=== PATIENT | male | born 1945 | race Caucasian/White ===

== ENCOUNTER 2017-03-30 10:16 | Inpatient (IN) | payer MEDICARE, OTHER ==
[~2017-03-30] VITALS: Ht 182.9 cm; Wt 119.5 kg
[~2017-03-30 10:16] MED LIST: ACET-704 PO; ACYC800T PO; ALLO300T PO; ASPI81TA50 PO; CALC0.5C PO; CETI10CA PO; CHOL400T14 PO; EZET1TAB26 PO; FLUT30CR TP; INDO50CA PO; MAGN400T22 PO; NEBI10TA3 PO; NIAC500T PO; OLME40TA12 PO; OMEG300C PO; OMEP20CA9 PO; SPIR25TA3 PO; VIT500LI PO
[2017-03-30 10:44] LABS: BASO # 0.1 x10^3/uL (0.0-0.2); BASO % 1 % (0-3); EOS # 0.3 x10^3/uL (0.0-0.7); EOS % 3 % (0-3); HEMATOCRIT 43.1 % (39.0-53.0); HEMOGLOBIN 14.5 g/dL (13.0-17.5); LYMPH # 4.4 x10^3/uL (1.0-4.8); LYMPH % 45 % (24-48); MEAN CORPUSCULAR HEMOGLOBIN 33 pg (25-35); MEAN CORPUSCULAR HGB CONC 34 g/dL (31-37); MEAN CORPUSCULAR VOLUME 98 fL (79-100); MONO # 1.3 x10^3/uL (0.0-1.1); MONO % 13 % (0-9); NEUT # 3.7 x10^3uL (1.8-7.7); NEUT % 38 % (31-73); PLATELET COUNT 211 x10^3/uL (140-400); RED CELL DISTRIBUTION WIDTH 15.1 % (11.5-14.5); WHITE BLOOD COUNT 9.8 x10^3/uL (4.0-11.0)
--- NOTE | 2017-03-30 10:44 | PHYS DOC ---
Past History Past Medical History: Hypertension Past Surgical History: No Surgical History Alcohol Use: Occasionally Drug Use: None Adult General Chief Complaint Chief Complaint: NEURO SYMPTOMS/DEFICITS [facility] Patient is a male presenting to the emergency department for evaluation of right arm circumferential numbness and an episode of hemoptysis. This occurred at 3:30 in the morning on March 29. Patient says that the numbness lasted for approximately 1 hour and he has not had any hemoptysis since that time. 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 Patient denies any difficulty speaking ambulating vision changes. He denies any similar symptoms in the past. He has had a heart catheter and a stent in the past and he is on baby aspirin daily. He also has a history of hypertension and high cholesterol and has been taking his medications as prescribed. Patient denies any black or bloody stools and he has been eating and drinking normally. He is in no obvious distress with normal vital signs. Review of Systems Review of Systems Constitutional: Denies fever or chills [] Eyes: Denies change in visual acuity, redness, or eye pain [] HENT: Denies nasal congestion or sore throat [] Respiratory: Denies cough or shortness of breath [] Cardiovascular: No additional information not addressed in HPI [] GI: Denies abdominal pain, nausea, vomiting, bloody stools or diarrhea [] : Denies dysuria or hematuria [] Musculoskeletal: Denies back pain or joint pain [] Integument: Denies rash or skin lesions [] Neurologic: Denies headache. + focal weakness and sensory changes. Allergies Allergies Allergies Coded Allergies Type Severity Reaction Last Updated Verified Penicillins Allergy Mild 12/20/13 Yes Sulfa (Sulfonamide Antibiotics) Allergy Mild 12/20/13 Yes Physical Exam Physical Exam Constitutional: Well developed, well nourished, no acute distress, non-toxic appearance. [] HENT: Normocephalic, atraumatic, bilateral external ears normal, oropharynx moist, no oral exudates, nose normal. [] Eyes: PERRLA, EOMI, conjunctiva normal, no discharge. [] Neck: Normal range of motion, no tenderness, supple, no stridor. [] Cardiovascular:Heart rate regular rhythm, no murmur [] Lungs & Thorax: Bilateral breath sounds clear to auscultation [] Abdomen: Bowel sounds normal, soft, no tenderness, no masses, no pulsatile masses. [] Skin: Warm, dry, no erythema, no rash. [] Back: No tenderness, no CVA tenderness. [] Extremities: No tenderness, no cyanosis, no clubbing, ROM intact, no edema. [] Neurologic: Alert and oriented X 3, normal motor function, normal sensory function, no focal deficits noted. [] Current Patient Data Lab Results Laboratory Tests Test 03/30/17 10:27 Glucose (Fingerstick) 104 mg/dL (70-99) H EKG EKG Sinus rhythm at 57 bpm with normal axis no obvious ST elevation or depression with inverted T waves in leads V2 and V3 Radiology/Procedures Radiology/Procedures History: Stroke Comparison is made to a study from 04/30/2012. The heart size is normal. There is mild calcific plaquing of the thoracic aorta. There is mild parenchymal scarring. A calcified granuloma is present in the right base. No acute infiltrate is seen. There is no evidence of pleural fluid. A surgical plate and screws is noted in the lower cervical spine. IMPRESSION: No acute cardiopulmonary abnormality is detected. DICTATED AND SIGNED BY: FLORIN CARLSON MD DATE: 03/30/[address] of the head without contrast, 03/30/2017: History: Right arm weakness and numbness Comparison is made to a study from 05/20/2008. The ventricles are within normal limits in size. There is no shift of the midline structures. There is no evidence of acute intracranial hemorrhage or mass effect. There is calcific plaquing of the distal internal carotid and right vertebral arteries. Mild mucosal thickening is present in both ethmoid sinuses IMPRESSION: No acute intracranial abnormality is detected. CT of the cervical spine without contrast, 03/30/2017: Noncontrast scans were obtained with multiplanar reconstructions produced. There has been a previous anterior spinal fusion from C4 through C7 with an anterior fixation plate and multiple screws in place. There is solid bony fusion through this region. There are moderate degenerative changes involving scattered facet joints bilaterally. There is a slight spondylolisthesis at C7-T1 due to facet joint arthropathy. There are moderate posterior spurs, most severe at C6-7. There are scattered posterior disc bulges/protrusions, not clearly defined on these scans. The combination of findings is causing moderate central spinal stenosis at and inferior to the C6-7 disc level as well as mild stenosis at several other levels. There is mild foraminal encroachment bilaterally at multiple levels. No acute fracture or dislocation is identified. There is moderate calcific plaquing at the carotid bifurcations. IMPRESSION: 1. Previous anterior spinal fusion and instrumentation from C4 through C7. 2. Moderate multilevel degenerative change with moderate central spinal stenosis at C6-7. 3. No acute bony abnormality is detected. PQRS Compliance Statement: One or more of the following individualized dose reduction techniques were utilized for this examination: 1. Automated exposure control 2. Adjustment of the mA and/or kV according to patient size 3. Use of iterative reconstruction technique DICTATED AND SIGNED BY: FLORIN CARLSON MD DATE: 03/30/17 1115 Course & Med Decision Making Course & Med Decision Making Patient with nonspecific right arm numbness which could be ischemic or a peripheral nerve involvement. Will get labs CT and reassess. Workup unremarkable. Concern is that this may be ischemic as peripheral nerve does not make complete sense as it is not dermatomal distribution. Patient feels that he is having persistent weakness although there is nothing objective noted. Patient will be admitted for further stroke workup. Dragon Disclaimer Dragon Disclaimer This chart was dictated in whole or in part using Voice Recognition software in a busy, high-work load, and often noisy Emergency Department environment. It may contain unintended and wholly unrecognized errors or omissions. Departure Departure: Impression: Primary Impression: Right arm numbness Additional Impressions: Right arm weakness Hemoptysis TIA (transient ischemic attack) Disposition: ADMITTED INPATIENT Admitting Physician: Dara Arnold Condition: STABLE Referrals: JOSE SINGLETON MD (PCP) Problem Qualifiers DAGO GOMEZ DO Mar 30, 2017 10:44
[2017-03-30 11:02] LABS: ALBUMIN 3.3 g/dL (3.4-5.0); ALBUMIN/GLOBULIN RATIO 0.9 (1.0-1.7); CALCIUM 9.2 mg/dL (8.5-10.1); CREATININE 1.8 mg/dL (0.7-1.3); GFR 37.2; POTASSIUM 4.3 mmol/L (3.5-5.1); TOTAL BILIRUBIN 0.6 mg/dL (0.2-1.0); TOTAL PROTEIN 6.9 g/dL (6.4-8.2)
--- NOTE | 2017-03-30 11:18 | RAD ---
ARELI chest, 03/30/2017: History: Stroke Comparison is made to a study from 04/30/2012. The heart size is normal. There is mild calcific plaquing of the thoracic aorta. There is mild parenchymal scarring. A calcified granuloma is present in the right base. No acute infiltrate is seen. There is no evidence of pleural fluid. A surgical plate and screws is noted in the lower cervical spine. IMPRESSION: No acute cardiopulmonary abnormality is detected.
--- NOTE | 2017-03-30 11:35 | RAD ---
CT of the head without contrast, 03/30/2017: History: Right arm weakness and numbness Comparison is made to a study from 05/20/2008. The ventricles are within normal limits in size. There is no shift of the midline structures. There is no evidence of acute intracranial hemorrhage or mass effect. There is calcific plaquing of the distal internal carotid and right vertebral arteries. Mild mucosal thickening is present in both ethmoid sinuses IMPRESSION: No acute intracranial abnormality is detected. CT of the cervical spine without contrast, 03/30/2017: Noncontrast scans were obtained with multiplanar reconstructions produced. There has been a previous anterior spinal fusion from C4 through C7 with an anterior fixation plate and multiple screws in place. There is solid bony fusion through this region. There are moderate degenerative changes involving scattered facet joints bilaterally. There is a slight spondylolisthesis at C7-T1 due to facet joint arthropathy. There are moderate posterior spurs, most severe at C6-7. There are scattered posterior disc bulges/protrusions, not clearly defined on these scans. The combination of findings is causing moderate central spinal stenosis at and inferior to the C6-7 disc level as well as mild stenosis at several other levels. There is mild foraminal encroachment bilaterally at multiple levels. No acute fracture or dislocation is identified. There is moderate calcific plaquing at the carotid bifurcations. IMPRESSION: 1. Previous anterior spinal fusion and instrumentation from C4 through C7. 2. Moderate multilevel degenerative change with moderate central spinal stenosis at C6-7. 3. No acute bony abnormality is detected. PQRS Compliance Statement: One or more of the following individualized dose reduction techniques were utilized for this examination: 1. Automated exposure control 2. Adjustment of the mA and/or kV according to patient size 3. Use of iterative reconstruction technique
[2017-03-30] MEDS ORDERED: ONDANSETRON PF 4 MG/2 ML VIAL. IV PRN (12:45)
[2017-03-30] MEDS ORDERED: fentaNYL PF 100 MCG/2 ML VIAL IV PRN (12:45)
--- NOTE | 2017-03-30 12:56 | EKG ---
[address] [address] Test Date: 2017-03-30 Test Time: 10:38:08 Pat Name: EULA BURR Department: Room: Gender: M Correctional Officer: PAO : 1945 Requested By: DAGO GOMEZ Order Number: [id number] Reading MD: Measurements Intervals [place] Rate: 57 P: -33 NM: 238 QRS: -26 QRSD: 104 T: 24 QT: 414 QTc: 406 Interpretive Statements SINUS RHYTHM PROLONGED NM INTERVAL LEFTWARD AXIS NON SPECIFIC T ABNORMALITY RI6.01 Unconfirmed report No previous ECG available for comparison
--- NOTE | 2017-03-30 14:35 | RAD ---
Carotid ultrasound, 03/30/2017: History: Right arm numbness Duplex evaluation of the carotid arteries in the neck was performed including grayscale, color-flow and spectral Doppler analysis. There is mild intimal thickening in the common carotid arteries with mild scattered plaquing at the bifurcations. The plaques are partially calcified. The peak systolic velocity in the right internal carotid artery is 56 cm/s with an end-diastolic velocity of 14 cm/s. The peak systolic velocity in the left internal carotid artery is 72 cm per sec with an end-diastolic velocity of 17 cm/s. These Doppler findings suggest narrowing in the 0-50% diameter range. Antegrade flow is present in both vertebral arteries in the neck. IMPRESSION: Mild atherosclerotic plaquing at both carotid bifurcations with underlying luminal narrowing in the 0-50% diameter range bilaterally. Note: Stenosis calculations for CT, MRA and conventional angiography are based upon determination of the distal ICA diameter in accordance with the NASCET methodology. Stenosis calculations for Doppler studies are derived from validated velocity criteria which are known to correlate with NASCET methodology of determining stenosis.
[2017-03-30 15:55] VITALS: BP 149/80
--- NOTE | 2017-03-30 16:06 | PDOC1 ---
History of Present Illness Reason for Visit: numbness and weakness in her right upper extremity. He also complained History of Present Illness The patient woke up at 3:30 on March 29 leaning of tingling and numbness of his right upper extremity and some weakness. He was unable to use his right upper extremity. He also complained of an episode of hemoptysis. 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 See HPI for pertinent positives and negative responses, other roy all other systems are negative, non pertinent or non contributory Constitutional: Denies fever or chills [] Eyes: Denies change in visual acuity, redness, or eye pain [] HENT: Denies nasal congestion or sore throat [] Respiratory: Denies cough or shortness of breath [] Cardiovascular: No additional information not addressed in HPI [] GI: Denies abdominal pain, nausea, vomiting, bloody stools or diarrhea [] : Denies dysuria or hematuria [] Musculoskeletal: Denies back pain or joint pain [] Integument: Denies rash or skin lesions [] Neurologic: Denies headache, focal weakness or sensory changes [] Endocrine: Denies polyuria or polydipsia [] Allergies: Coded Allergies: Penicillins (Verified Allergy, Mild, 12/20/13) Sulfa (Sulfonamide Antibiotics) (Verified Allergy, Mild, 12/20/13) Medications Current Medications Ondansetron HCl (Zofran) 4 mg PRN Q4HRS PRN IV NAUSEA/VOMITING; Start 03/30/17 at 12:45; Stop 03/31/17 at 12:44 Fentanyl Citrate (Fentanyl 2ml Vial) 50 mcg PRN Q2HR PRN IV PAIN; Start at 12:45; Stop 03/31/17 at 12:44 Active Scripts Active Tylenol With Codeine #3 Tablet (Acetaminophen With Codeine) 1 Each Tablet 1 Tab PO Q6HRS Reported Zyrtec (Cetirizine Hcl) 10 Mg Capsule 10 Mg PO Vytorin 10-10 Mg Tablet (Ezetimibe/Simvastatin) 1 Each Tablet 1 Each PO Vitamin D-400 (Cholecalciferol (Vitamin D3)) 400 Unit Tablet 400 Unit PO Vitamin C 500 Mg/15 Ml Liquid (Vit C/Ascorbate Ca/Ascorb Sod) 500 Mg/15 Ml Liquid 500 Mg PO Spironolactone 25 Mg Tablet 25 Mg PO Omeprazole 20 Mg Capsule.dr 20 Mg PO Niaspan (Niacin) 500 Mg Tab.er.24h 500 Mg PO Mag-Oxide (Magnesium Oxide) 400 Mg Tablet 400 Mg PO Indomethacin 50 Mg Capsule 50 Mg PO Fluticasone Propionate Cream (Fluticasone Propionate) 30 Gm Cream..g. 30 Gm TP Fish Oil ([place]-3 Fatty Acids) 300 Mg Capsule 300 Mg PO Calcitriol 0.5 Mcg Capsule 0.5 Mcg PO Bystolic (Nebivolol Hcl) 10 Mg Tablet 10 Mg PO Benicar (Olmesartan Medoxomil) 40 Mg Tablet 40 Mg PO Aspir-Low (Aspirin) 81 Mg Tablet.dr 81 Mg PO Allopurinol 300 Mg Tablet 300 Mg PO Acyclovir 800 Mg Tablet 800 Mg PO Exam Vital Signs Vital Signs Date Time Temp Pulse Resp B/P (MAP) Pulse Ox O2 Delivery O2 Flow Rate FiO2 03/30/17 12:23 56 12 141/80 (100) 98 Room Air 03/30/17 10:25 98.1 Constitutional: Well developed, well nourished, no acute distress, non-toxic appearance. HENT: Normocephalic, atraumatic, bilateral external ears normal, oropharynx moist, no oral exudates, nose normal. Eyes: CINDY, EOMI, conjunctiva normal, no discharge. Neck: Normal range of motion, no tenderness, supple, no stridor. Cardiovascular: JVP not elevated. No carotid bruit. Nor precordial pulsations or heaves. S1 N,S2N. No murmurs. No rubs or clicks. Thorax and Lungs: NOrmal respiration. Normal chest expansion. Normal to percuss. Equal breath sounds. No crackles. No wheeze. Abdomen: Bowel sounds normal, soft, no tenderness, no masses, no pulsatile masses. Skin: Warm, dry, no erythema, no rash. Back: No tenderness, no CVA tenderness. Extremities: Intact distal pulses, no tenderness, no cyanosis, no clubbing, ROM intact, no edema. Neurologic: Alert and oriented X 3, normal motor function, normal sensory function, no focal deficits noted. Psychologic: Affect normal, judgement normal, mood normal. Assessment/Plan Assessment/Plan Right upper extremity tingling numbness and weakness Hemoptysis Hypertension Chronic kidney diseas hyperlipidemia Coronary artery disease treated with angioplasty and stent deployment COURSE Allergies Coded Allergies Type Severity Reaction Last Updated Verified Penicillins Allergy Mild 12/20/13 Yes Sulfa (Sulfonamide Antibiotics) Allergy Mild 12/20/13 Yes Laboratory Tests Test 03/30/17 10:27 03/30/17 10:31 Glucose (Fingerstick) 104 mg/dL (70-99) White Blood Count 9.8 x10^3/uL (4.0-11.0) Red Blood Count 4.40 x10^6/uL (4.30-5.70) Hemoglobin 14.5 g/dL (13.0-17.5) Hematocrit 43.1 % (39.0-53.0) Mean Corpuscular Volume 98 fL (79-100) Mean Corpuscular Hemoglobin 33 pg (25-35) Mean Corpuscular Hemoglobin Concent 34 g/dL (31-37) Red Cell Distribution Width 15.1 % (11.5-14.5) Platelet Count 211 x10^3/uL (140-400) Neutrophils (%) (Auto) 38 % (31-73) Lymphocytes (%) (Auto) 45 % (24-48) Monocytes (%) (Auto) 13 % (0-9) Eosinophils (%) (Auto) 3 % (0-3) Basophils (%) (Auto) 1 % (0-3) Neutrophils # (Auto) 3.7 x10^3uL (1.8-7.7) Lymphocytes # (Auto) 4.4 x10^3/uL (1.0-4.8) Monocytes # (Auto) 1.3 x10^3/uL (0.0-1.1) Eosinophils # (Auto) 0.3 x10^3/uL (0.0-0.7) Basophils # (Auto) 0.1 x10^3/uL (0.0-0.2) Prothrombin Time 10.2 SEC (9.4-11.4) Prothromb Time International Ratio 1.0 (0.9-1.1) Activated Partial Thromboplast Time 25 SEC (23-33) Sodium Level 142 mmol/L (136-145) Potassium Level 4.3 mmol/L (3.5-5.1) Chloride Level 108 mmol/L (98-107) Carbon Dioxide Level 26 mmol/L (21-32) Anion Gap 8 (6-14) Blood Urea Nitrogen 24 mg/dL (8-26) Creatinine 1.8 mg/dL (0.7-1.3) Estimated GFR (Cockcroft-Gault) 37.2 BUN/Creatinine Ratio 13 (6-20) Glucose Level 99 mg/dL (70-99) Calcium Level 9.2 mg/dL (8.5-10.1) Total Bilirubin 0.6 mg/dL (0.2-1.0) Aspartate Amino Transf (AST/SGOT) 17 U/L (15-37) Alanine Aminotransferase (ALT/SGPT) 19 U/L (16-63) Alkaline Phosphatase 116 U/L (46-116) Troponin I Quantitative < 0.017 ng/mL (0-0.055) Total Protein 6.9 g/dL (6.4-8.2) Albumin 3.3 g/dL (3.4-5.0) Albumin/Globulin Ratio 0.9 (1.0-1.7) Current Medications Medications (Trade) Dose Ordered Sig/Ivett Route PRN Reason Start Time Stop Time Status Last Admin Dose Admin Ondansetron HCl (Zofran) 4 mg PRN Q4HRS PRN IV NAUSEA/VOMITING 03/30/17 12:45 03/31/17 12:44 Fentanyl Citrate (Fentanyl 2ml Vial) 50 mcg PRN Q2HR PRN IV PAIN 03/30/17 12:45 03/31/17 12:44 Orders Procedure Category Date Status Time Cbc W Autodiff LAB 03/30/17 Complete 10:29 Comprehensive LAB 03/30/17 Complete Metabolic Panel 10:29 Protime LAB 03/30/17 Complete 10:29 Partial LAB 03/30/17 Complete Thromboplastin Time 10:29 Troponin I LAB 03/30/17 Complete 10:29 12 Lead Ekg EKG 03/30/17 Complete 10:29 Ct Head [address] Cervical CT 03/30/17 Resulted Spine Wo 10:29 Chest Ap Only RAD 03/30/17 Resulted 10:29 [place] Order ADT 03/30/17 Transmitted 12:40 Code Status CODE 03/30/17 Transmitted 12:40 Vital Signs, Per MIKEL 03/30/17 In Process Protocol 12:40 Cardiac DIET 03/30/17 Transmitted Breakfast Ambulate Ad Milagros MIKEL 03/30/17 In Process 12:40 Ondansetron Pf PHA 03/30/17 In Process (Zofran) 12:45 Fentanyl Pf (Fentanyl PHA 03/30/17 In Process 2ml Vial) 12:45 Consult Physician By CONS 03/30/17 Transmitted Name 12:40 Doppler Carotid Bilat US 03/30/17 Resulted 12:45 Echocardiogram ECHO 03/30/17 Logged 12:45 Vital Signs Date Time Temp Pulse Resp B/P (MAP) Pulse Ox O2 Delivery O2 Flow Rate FiO2 03/30/17 12:23 56 12 141/80 (100) 98 Room Air 03/30/17 10:25 98.[address] Noble As for bilateral carotid Doppler ultrasound Echocardiogram Check fasting lipid profile NORMA ALMEIDA MD Mar 30, 2017 16:06
[2017-03-30] MEDS ORDERED: NITROGLYCERIN SUBLINGUAL 0.4 MG BOTTLE OF 25. SL PRN (16:30)
[2017-03-30] MEDS ORDERED: OMEP40CA5 PO (16:46)
[2017-03-30] MEDS ORDERED: CHOL500016 PO (16:46)
[2017-03-30] MEDS ORDERED: ASCO500T2 PO (16:46)
[2017-03-30] MEDS ORDERED: FLUT16SP21 NS (16:46)
[2017-03-30] MEDS ORDERED: ATOR40TA59 PO (16:47)
[2017-03-30] MEDS ORDERED: AMLO5TAB2 PO (16:47)
[2017-03-30] MEDS ORDERED: NITR0.4T22 SL (16:51)
[2017-03-30] MEDS ORDERED: LOSA100T6 PO (16:51)
[2017-03-30] MEDS ORDERED: FLUTICASONE 0.05% TP SCH (18:00)
[2017-03-30] MEDS ORDERED: ACETAMINOPHEN/CODEINE 300/30MG TABLET PO SCH (18:00)
[2017-03-30 19:57] VITALS: BP 118/66
[2017-03-30] MEDS: ATORVASTATIN CALCIUM 20 MG TABLET PO SCH (20:10)
[2017-03-30] MEDS: METOPROLOL TART IMMED RELEASE 25 MG TABLET PO SCH (20:10)
[2017-03-30] MEDS ORDERED: SIMVASTATIN 10 MG TABLET PO SCH (21:00)
[2017-03-30] MEDS ORDERED: MAGNESIUM OXIDE 400 MG TABLET PO SCH (21:00)
--- NOTE | 2017-03-30 23:46 | PDOC2 ---
NEUROLOGY CONSULT Date of Admission DATE: 03/30/17 TIME: 23:32 Reason for Consult: Problems Medical Problems: (1) Hemoptysis Status: Acute (2) Right arm numbness Status: Acute (3) Right arm weakness Status: Acute (4) TIA (transient ischemic attack) Status: Acute Referring Physician: Dara Arnold Source: Patient Current Medications Current Medications Ondansetron HCl (Zofran) 4 mg PRN Q4HRS PRN IV NAUSEA/VOMITING; Start 03/30/17 at 12:45; Stop 03/31/17 at 12:44 Fentanyl Citrate (Fentanyl 2ml Vial) 50 mcg PRN Q2HR PRN IV PAIN; Start at 12:45; Stop 03/31/17 at 12:44 Pneumococcal Polyvalent Vaccine (Pneumovax 23) 0.5 ml ONCE ONCE VAX IM ; Start 03/31/17 at 09:00; Stop 03/31/17 at 09:01 Acetaminophen/ Codeine Phosphate (Tylenol #3) 1 tab Q6HRS PO ; Start 03/30/17 at 18:00; Stop 03/30/17 at 18:00; Status DC Allopurinol (Zyloprim) 300 mg DAILY PO ; Start 03/31/17 at 09:00 Aspirin (Aspirin Enteric Coated) 81 mg DAILY PO ; Start 03/31/17 at 09:00; Stop 03/31/17 at 09:00; Status DC Vitamin D (Vitamin D3) 400 unit DAILY PO ; Start 03/31/17 at 09:00; Stop 03/31/17 at 09:00; Status DC Fluticasone Propionate (Cutivate) 1 tha BID66 TP ; Start 03/30/17 at 18:00; Stop 03/30/17 at 18:00; Status DC Magnesium Oxide (Magnesium Oxide) 400 mg BID PO ; Start 03/30/17 at 21:00; Stop 03/30/17 at 21:00; Status DC Niacin (Slo-Niacin) 500 mg DAILY PO ; Start 03/31/17 at 09:00; Stop 03/31/17 at 09 :00; Status DC Spironolactone (Aldactone) 25 mg DAILY PO ; Start 03/31/17 at 09:00; Stop at 09:00; Status DC Calcitriol (Rocaltrol) 0.5 mcg DAILY PO ; Start 03/31/17 at 09:00; Stop 03/31/17 at 09:00; Status DC Cetirizine HCl (ZyrTEC) 10 mg DAILY PO ; Start 03/31/17 at 09:00 Simvastatin (Zocor) 10 mg QHS PO ; Start 03/30/17 at 21:00; Stop 03/30/17 at 21:00 ; Status DC Fish Oil (Fish Oil) 1,000 mg DAILY PO ; Start 03/31/17 at 09:00; Stop 03/31/17 at 09:00; Status DC Pantoprazole Sodium (Protonix) 20 mg DAILYAC PO ; Start 03/31/17 at 07:30 Amlodipine Besylate (Norvasc) 5 mg DAILY PO ; Start 03/31/17 at 09:00 Ascorbic Acid (Vitamin C) 500 mg DAILY PO ; Start 03/31/17 at 09:00 Fluticasone Propionate (Flonase) 2 spray DAILY NS ; Start 03/31/17 at 09:00 Nitroglycerin (Nitrostat) 0.4 mg PRN Q5MIN PRN SL CHEST PAIN; Start 03/30/17 at 16:30 Atorvastatin Calcium (Lipitor) 40 mg QHS PO Last administered on 03/30/17t 20:10 ; Start 03/30/17 at 21:00 Vitamin D (Vitamin D3) 5,000 unit DAILY PO ; Start 03/31/17 at 09:00 Losartan Potassium (Cozaar) 100 mg DAILY PO ; Start 03/31/17 at 09:00 Metoprolol Tartrate (Lopressor) 25 mg BID PO ; Start 03/30/17 at 21:00 Non-Formulary Medication 1 cap DAILY PO ; Start 03/31/17 at 09:00; Stop 03/31/17 at 09:00; Status DC Magnesium Oxide (Magnesium Oxide) 400 mg DAILY PO ; Start 03/31/17 at 09:00 Aspirin (Aspirin Enteric Coated) 81 mg QODAY PO ; Start 04/01/17 at 09:00 Active Scripts Active Reported NITROGLYCERIN SubLingual (Nitroglycerin) 0.4 Mg Tab.subl 0.4 Mg SL PRN Q5MIN PRN LAST DOSE GIVEN: DATE: TIME: NEXT DOSE DUE: DATE: TIME: Losartan Potassium 100 Mg Tablet 100 Mg PO DAILY LAST DOSE GIVEN: DATE: TIME: NEXT DOSE DUE: DATE: TIME: Atorvastatin Calcium 40 Mg Tablet 1 Tab PO HS LAST DOSE GIVEN: DATE: TIME: NEXT DOSE DUE: DATE: TIME: Amlodipine Besylate 5 Mg Tablet 1 Tab PO DAILY LAST DOSE GIVEN: DATE: TIME: NEXT DOSE DUE: DATE: TIME: Vitamin D3 (Cholecalciferol (Vitamin D3)) 5,000 Unit Tablet 1 Tab PO DAILY LAST DOSE GIVEN: DATE: TIME: NEXT DOSE DUE: DATE: TIME: Vitamin C (Ascorbic Acid) 500 Mg Tablet 500 Mg PO Omeprazole 40 Mg Capsule.dr 1 Cap PO DAILY LAST DOSE GIVEN: DATE: TIME: NEXT DOSE DUE: DATE: TIME: Fluticasone Propionate Nasal [place] (Fluticasone Propionate) 16 Gm [place].susp 2 Spr NS DAILY Zyrtec (Cetirizine Hcl) 10 Mg Capsule 10 Mg PO DAILY LAST DOSE GIVEN: DATE: TIME: NEXT DOSE DUE: DATE: TIME: Mag-Oxide (Magnesium Oxide) 400 Mg Tablet 400 Mg PO DAILY LAST DOSE GIVEN: DATE: TIME: NEXT DOSE DUE: DATE: TIME: Bystolic (Nebivolol Hcl) 10 Mg Tablet 5 Mg PO DAILY LAST DOSE GIVEN: DATE: TIME: NEXT DOSE DUE: DATE: TIME: Aspir-Low (Aspirin) 81 Mg Tablet.dr 81 Mg PO DAILY LAST DOSE GIVEN: DATE: TIME: NEXT DOSE DUE: DATE: TIME: Allopurinol 300 Mg Tablet 300 Mg PO DAILY LAST DOSE GIVEN: DATE: TIME: NEXT DOSE DUE: DATE: TIME: Allergies: Coded Allergies: Penicillins (Verified Allergy, Mild, 12/20/13) Sulfa (Sulfonamide Antibiotics) (Verified Allergy, Mild, 12/20/13) VITALS Vital Signs Date Time Temp Pulse Resp B/P (MAP) Pulse Ox O2 Delivery O2 Flow Rate FiO2 03/30/17 20:10 51 118/66 03/30/17 19:57 97.5 20 93 Room Air Labs Laboratory Tests Test 03/30/17 10:27 03/30/17 10:31 Glucose (Fingerstick) 104 mg/dL (70-99) White Blood Count 9.8 x10^3/uL (4.0-11.0) Red Blood Count 4.40 x10^6/uL (4.30-5.70) Hemoglobin 14.5 g/dL (13.0-17.5) Hematocrit 43.1 % (39.0-53.0) Mean Corpuscular Volume 98 fL (79-100) Mean Corpuscular Hemoglobin 33 pg (25-35) Mean Corpuscular Hemoglobin Concent 34 g/dL (31-37) Red Cell Distribution Width 15.1 % (11.5-14.5) Platelet Count 211 x10^3/uL (140-400) Neutrophils (%) (Auto) 38 % (31-73) Lymphocytes (%) (Auto) 45 % (24-48) Monocytes (%) (Auto) 13 % (0-9) Eosinophils (%) (Auto) 3 % (0-3) Basophils (%) (Auto) 1 % (0-3) Neutrophils # (Auto) 3.7 x10^3uL (1.8-7.7) Lymphocytes # (Auto) 4.4 x10^3/uL (1.0-4.8) Monocytes # (Auto) 1.3 x10^3/uL (0.0-1.1) Eosinophils # (Auto) 0.3 x10^3/uL (0.0-0.7) Basophils # (Auto) 0.1 x10^3/uL (0.0-0.2) Prothrombin Time 10.2 SEC (9.4-11.4) Prothromb Time International Ratio 1.0 (0.9-1.1) Activated Partial Thromboplast Time 25 SEC (23-33) Sodium Level 142 mmol/L (136-145) Potassium Level 4.3 mmol/L (3.5-5.1) Chloride Level 108 mmol/L (98-107) Carbon Dioxide Level 26 mmol/L (21-32) Anion Gap 8 (6-14) Blood Urea Nitrogen 24 mg/dL (8-26) Creatinine 1.8 mg/dL (0.7-1.3) Estimated GFR (Cockcroft-Gault) 37.2 BUN/Creatinine Ratio 13 (6-20) Glucose Level 99 mg/dL (70-99) Calcium Level 9.2 mg/dL (8.5-10.1) Total Bilirubin 0.6 mg/dL (0.2-1.0) Aspartate Amino Transf (AST/SGOT) 17 U/L (15-37) Alanine Aminotransferase (ALT/SGPT) 19 U/L (16-63) Alkaline Phosphatase 116 U/L (46-116) Troponin I Quantitative < 0.017 ng/mL (0-0.055) Total Protein 6.9 g/dL (6.4-8.2) Albumin 3.3 g/dL (3.4-5.0) Albumin/Globulin Ratio 0.9 (1.0-1.7) Malcom APPIAH MD Mar 30, 2017 23:46
[2017-03-31 00:28] VITALS: BP 131/78
--- NOTE | 2017-03-31 00:49 | PDOC2 ---
NEUROLOGY CONSULT Date of Admission DATE: 03/30/17 TIME: 23:48 Reason for Consult: Problems Medical Problems: (1) Hemoptysis Status: Acute (2) Right arm numbness Status: Acute (3) Right arm weakness Status: Acute (4) TIA (transient ischemic attack) Status: Acute Referring Physician: Dara Arnold Chief Complaint weakness and numbness of the upper extremity Source: Patient Reason for Visit: as above and [id number] upon awakening Cardiovascular: CAD, HTN, [place], hyperipidemia Rheumatologic: Gout Past Surgical History: Other (spleenectom) Current Medications Current Medications Ondansetron HCl (Zofran) 4 mg PRN Q4HRS PRN IV NAUSEA/VOMITING; Start 03/30/17 at 12:45; Stop 03/31/17 at 12:44 Fentanyl Citrate (Fentanyl 2ml Vial) 50 mcg PRN Q2HR PRN IV PAIN; Start at 12:45; Stop 03/31/17 at 12:44 Pneumococcal Polyvalent Vaccine (Pneumovax 23) 0.5 ml ONCE ONCE VAX IM ; Start 03/31/17 at 09:00; Stop 03/31/17 at 09:01 Acetaminophen/ Codeine Phosphate (Tylenol #3) 1 tab Q6HRS PO ; Start 03/30/17 at 18:00; Stop 03/30/17 at 18:00; Status DC Allopurinol (Zyloprim) 300 mg DAILY PO ; Start 03/31/17 at 09:00 Aspirin (Aspirin Enteric Coated) 81 mg DAILY PO ; Start 03/31/17 at 09:00; Stop 03/31/17 at 09:00; Status DC Vitamin D (Vitamin D3) 400 unit DAILY PO ; Start 03/31/17 at 09:00; Stop 03/31/17 at 09:00; Status DC Fluticasone Propionate (Cutivate) 1 tha BID66 TP ; Start 03/30/17 at 18:00; Stop 03/30/17 at 18:00; Status DC Magnesium Oxide (Magnesium Oxide) 400 mg BID PO ; Start 03/30/17 at 21:00; Stop 03/30/17 at 21:00; Status DC Niacin (Slo-Niacin) 500 mg DAILY PO ; Start 03/31/17 at 09:00; Stop 03/31/17 at 09 :00; Status DC Spironolactone (Aldactone) 25 mg DAILY PO ; Start 03/31/17 at 09:00; Stop at 09:00; Status DC Calcitriol (Rocaltrol) 0.5 mcg DAILY PO ; Start 03/31/17 at 09:00; Stop 03/31/17 at 09:00; Status DC Cetirizine HCl (ZyrTEC) 10 mg DAILY PO ; Start 03/31/17 at 09:00 Simvastatin (Zocor) 10 mg QHS PO ; Start 03/30/17 at 21:00; Stop 03/30/17 at 21:00 ; Status DC Fish Oil (Fish Oil) 1,000 mg DAILY PO ; Start 03/31/17 at 09:00; Stop 03/31/17 at 09:00; Status DC Pantoprazole Sodium (Protonix) 20 mg DAILYAC PO ; Start 03/31/17 at 07:30 Amlodipine Besylate (Norvasc) 5 mg DAILY PO ; Start 03/31/17 at 09:00 Ascorbic Acid (Vitamin C) 500 mg DAILY PO ; Start 03/31/17 at 09:00 Fluticasone Propionate (Flonase) 2 spray DAILY NS ; Start 03/31/17 at 09:00 Nitroglycerin (Nitrostat) 0.4 mg PRN Q5MIN PRN SL CHEST PAIN; Start 03/30/17 at 16:30 Atorvastatin Calcium (Lipitor) 40 mg QHS PO Last administered on 03/30/17t 20:10 ; Start 03/30/17 at 21:00 Vitamin D (Vitamin D3) 5,000 unit DAILY PO ; Start 03/31/17 at 09:00 Losartan Potassium (Cozaar) 100 mg DAILY PO ; Start 03/31/17 at 09:00 Metoprolol Tartrate (Lopressor) 25 mg BID PO ; Start 03/30/17 at 21:00 Non-Formulary Medication 1 cap DAILY PO ; Start 03/31/17 at 09:00; Stop 03/31/17 at 09:00; Status DC Magnesium Oxide (Magnesium Oxide) 400 mg DAILY PO ; Start 03/31/17 at 09:00 Aspirin (Aspirin Enteric Coated) 81 mg QODAY PO ; Start 04/01/17 at 09:00 Active Scripts Active Reported NITROGLYCERIN SubLingual (Nitroglycerin) 0.4 Mg Tab.subl 0.4 Mg SL PRN Q5MIN PRN LAST DOSE GIVEN: DATE: TIME: NEXT DOSE DUE: DATE: TIME: Losartan Potassium 100 Mg Tablet 100 Mg PO DAILY LAST DOSE GIVEN: DATE: TIME: NEXT DOSE DUE: DATE: TIME: Atorvastatin Calcium 40 Mg Tablet 1 Tab PO HS LAST DOSE GIVEN: DATE: TIME: NEXT DOSE DUE: DATE: TIME: Amlodipine Besylate 5 Mg Tablet 1 Tab PO DAILY LAST DOSE GIVEN: DATE: TIME: NEXT DOSE DUE: DATE: TIME: Vitamin D3 (Cholecalciferol (Vitamin D3)) 5,000 Unit Tablet 1 Tab PO DAILY LAST DOSE GIVEN: DATE: TIME: NEXT DOSE DUE: DATE: TIME: Vitamin C (Ascorbic Acid) 500 Mg Tablet 500 Mg PO Omeprazole 40 Mg Capsule.dr 1 Cap PO DAILY LAST DOSE GIVEN: DATE: TIME: NEXT DOSE DUE: DATE: TIME: Fluticasone Propionate Nasal [place] (Fluticasone Propionate) 16 Gm [place].susp 2 Spr NS DAILY Zyrtec (Cetirizine Hcl) 10 Mg Capsule 10 Mg PO DAILY LAST DOSE GIVEN: DATE: TIME: NEXT DOSE DUE: DATE: TIME: Mag-Oxide (Magnesium Oxide) 400 Mg Tablet 400 Mg PO DAILY LAST DOSE GIVEN: DATE: TIME: NEXT DOSE DUE: DATE: TIME: Bystolic (Nebivolol Hcl) 10 Mg Tablet 5 Mg PO DAILY LAST DOSE GIVEN: DATE: TIME: NEXT DOSE DUE: DATE: TIME: Aspir-Low (Aspirin) 81 Mg Tablet.dr 81 Mg PO DAILY LAST DOSE GIVEN: DATE: TIME: NEXT DOSE DUE: DATE: TIME: Allopurinol 300 Mg Tablet 300 Mg PO DAILY LAST DOSE GIVEN: DATE: TIME: NEXT DOSE DUE: DATE: TIME: Allergies: Coded Allergies: Penicillins (Verified Allergy, Mild, 12/20/13) Sulfa (Sulfonamide Antibiotics) (Verified Allergy, Mild, 12/20/13) Review of System 10- review of system as above in the history of present system Physical Examination Physical Examination: General: Well-developed, well-nourished, white male, HEENT: normocephalic, atraumatic, otherwise unremarkable. Neck: supple, negative for JVD, carotid bruit, lymphoadenopathy or thyroidomegaly. Lungs: clear. Cardiovascular: normal S1, S2 without murmur. Abdomen: soft, no tenderness, mass or organomegaly. Extremities : no edema, clubbing or cyanosis. The peripheral pulses were normal. Neurological Examination: 1- Mental status: alert and oriented to time x3. The speech was fluent. There were no language dysfunctions. Memory: the patient recalls 3-3 objects after 1 and 3 minutes. Judgment and abstracting thinking were intact. Mood: non- depressed at this time. The patient denies hallucination , delusion or suicidal ideation. 2- Cranial Nerves: Visual [place] were full. The pupils were equal and reactive to light and accommodation. The extra ocular movements were intact; there was no nystagmus on horizontal or vertical gazes. Fundoscopic exam revealed no retinal bleeding or papilledma. There were no facial, motor or sensory deficits. The hearing was intact. The palate was elevated symmetrically. The sternocleidomastoids were powerful bilaterally. The patient protruded the tongue in the midline without fasciculations or atrophy. 3- Motor Examination: No focal muscle bulk wasting. The strength was 5/5 throughout. 4- Sensory Examination: Normal pinprick, light touch, vibratory, and position senses. 5- Deep Tendon Reflexes: Were symmetric and active without pathologic responses. 6- Coordinations and Gait: Normal. VITALS Vital Signs Date Time Temp Pulse Resp B/P (MAP) Pulse Ox O2 Delivery O2 Flow Rate FiO2 03/30/17 20:10 51 118/66 03/30/17 19:57 97.5 20 93 Room Air Labs Laboratory Tests Test 03/30/17 10:27 03/30/17 10:31 Glucose (Fingerstick) 104 mg/dL (70-99) White Blood Count 9.8 x10^3/uL (4.0-11.0) Red Blood Count 4.40 x10^6/uL (4.30-5.70) Hemoglobin 14.5 g/dL (13.0-17.5) Hematocrit 43.1 % (39.0-53.0) Mean Corpuscular Volume 98 fL (79-100) Mean Corpuscular Hemoglobin 33 pg (25-35) Mean Corpuscular Hemoglobin Concent 34 g/dL (31-37) Red Cell Distribution Width 15.1 % (11.5-14.5) Platelet Count 211 x10^3/uL (140-400) Neutrophils (%) (Auto) 38 % (31-73) Lymphocytes (%) (Auto) 45 % (24-48) Monocytes (%) (Auto) 13 % (0-9) Eosinophils (%) (Auto) 3 % (0-3) Basophils (%) (Auto) 1 % (0-3) Neutrophils # (Auto) 3.7 x10^3uL (1.8-7.7) Lymphocytes # (Auto) 4.4 x10^3/uL (1.0-4.8) Monocytes # (Auto) 1.3 x10^3/uL (0.0-1.1) Eosinophils # (Auto) 0.3 x10^3/uL (0.0-0.7) Basophils # (Auto) 0.1 x10^3/uL (0.0-0.2) Prothrombin Time 10.2 SEC (9.4-11.4) Prothromb Time International Ratio 1.0 (0.9-1.1) Activated Partial Thromboplast Time 25 SEC (23-33) Sodium Level 142 mmol/L (136-145) Potassium Level 4.3 mmol/L (3.5-5.1) Chloride Level 108 mmol/L (98-107) Carbon Dioxide Level 26 mmol/L (21-32) Anion Gap 8 (6-14) Blood Urea Nitrogen 24 mg/dL (8-26) Creatinine 1.8 mg/dL (0.7-1.3) Estimated GFR (Cockcroft-Gault) 37.2 BUN/Creatinine Ratio 13 (6-20) Glucose Level 99 mg/dL (70-99) Calcium Level 9.2 mg/dL (8.5-10.1) Total Bilirubin 0.6 mg/dL (0.2-1.0) Aspartate Amino Transf (AST/SGOT) 17 U/L (15-37) Alanine Aminotransferase (ALT/SGPT) 19 U/L (16-63) Alkaline Phosphatase 116 U/L (46-116) Troponin I Quantitative < 0.017 ng/mL (0-0.055) Total Protein 6.9 g/dL (6.4-8.2) Albumin 3.3 g/dL (3.4-5.0) Albumin/Globulin Ratio 0.9 (1.0-1.7) Images PATIENT: EULA BURR ACCOUNT: [id number] : 1945 LOCATION: [facility] AGE: 71 SEX: M EXAM STATUS: ADM IN ORD. PHYSICIAN: DAGO GOMEZ DO REASON: STROKE W/U. R ARM WEAKNESS PROCEDURE: DOPPLER CAROTID BILAT Carotid ultrasound, 03/30/2017: History: Right arm numbness Duplex evaluation of the carotid arteries in the neck was performed including grayscale, color-flow and spectral Doppler analysis. There is mild intimal thickening in the common carotid arteries with mild scattered plaquing at the bifurcations. The plaques are partially calcified. The peak systolic velocity in the right internal carotid artery is 56 cm/s with an end-diastolic velocity of 14 cm/s. The peak systolic velocity in the left internal carotid artery is 72 cm per sec with an end-diastolic velocity of 17 cm/s. These Doppler findings suggest narrowing in the 0-50% diameter range. Antegrade flow is present in both vertebral arteries in the neck. IMPRESSION: Mild atherosclerotic plaquing at both carotid bifurcations with underlying luminal narrowing in the 0-50% diameter range bilaterally. Note: Stenosis calculations for CT, MRA and conventional angiography are based upon determination of the distal ICA diameter in accordance with the NASCET methodology. Stenosis calculations for Doppler studies are derived from validated velocity criteria which are known to correlate with NASCET methodology of determining stenosis. Comparison is made to a study from 04/30/2012. The heart size is normal. There is mild calcific plaquing of the thoracic aorta. There is mild parenchymal scarring. A calcified granuloma is present in the right base. No acute infiltrate is seen. There is no evidence of pleural fluid. A surgical plate and screws is noted in the lower cervical spine. IMPRESSION: No acute cardiopulmonary abnormality is detected. CT of the head without contrast, 03/30/2017: History: Right arm weakness and numbness Comparison is made to a study from 05/20/2008. The ventricles are within normal limits in size. There is no shift of the midline structures. There is no evidence of acute intracranial hemorrhage or mass effect. There is calcific plaquing of the distal internal carotid and right vertebral arteries. Mild mucosal thickening is present in both ethmoid sinuses IMPRESSION: No acute intracranial abnormality is detected. CT of the cervical spine without contrast, 03/30/2017: Noncontrast scans were obtained with multiplanar reconstructions produced. There has been a previous anterior spinal fusion from C4 through C7 with an anterior fixation plate and multiple screws in place. There is solid bony fusion through this region. There are moderate degenerative changes involving scattered facet joints bilaterally. There is a slight spondylolisthesis at C7-T1 due to facet joint arthropathy. There are moderate posterior spurs, most severe at C6-7. There are scattered posterior disc bulges/protrusions, not clearly defined on these scans. The combination of findings is causing moderate central spinal stenosis at and inferior to the C6-7 disc level as well as mild stenosis at several other levels. There is mild foraminal encroachment bilaterally at multiple levels. No acute fracture or dislocation is identified. There is moderate calcific plaquing at the carotid bifurcations. IMPRESSION: 1. Previous anterior spinal fusion and instrumentation from C4 through C7. 2. Moderate multilevel degenerative change with moderate central spinal stenosis at C6-7. 3. No acute bony abnormality is detected. Assessment/Plan 1- right upper extremity numbness and weakness resolved r/o TIA 2 CAD,HTN,Hyperlipidemia, gout, hemoptysis plan: 1 echocardiogram 2 Continue with current care and medication Malcom APPIAH MD Mar 31, 2017 00:49
[2017-03-31 05:51] VITALS: BP 122/73
[2017-03-31 06:21] LABS: BASO % 1 % (0-3); EOS # 0.3 x10^3/uL (0.0-0.7); EOS % 4 % (0-3); HEMATOCRIT 41.7 % (39.0-53.0); LYMPH # 3.6 x10^3/uL (1.0-4.8); LYMPH % 39 % (24-48); MEAN CORPUSCULAR HEMOGLOBIN 33 pg (25-35); MEAN CORPUSCULAR HGB CONC 34 g/dL (31-37); MEAN CORPUSCULAR VOLUME 98 fL (79-100); MONO # 1.1 x10^3/uL (0.0-1.1); MONO % 12 % (0-9); NEUT # 4.2 x10^3uL (1.8-7.7); NEUT % 45 % (31-73); PLATELET COUNT 212 x10^3/uL (140-400); RED BLOOD COUNT 4.27 x10^6/uL (4.30-5.70); RED CELL DISTRIBUTION WIDTH 14.9 % (11.5-14.5); WHITE BLOOD COUNT 9.2 x10^3/uL (4.0-11.0)
[2017-03-31 06:31] LABS: ALBUMIN 3.1 g/dL (3.4-5.0); ALBUMIN/GLOBULIN RATIO 0.9 (1.0-1.7); CALCIUM 9.1 mg/dL (8.5-10.1); CREATININE 1.6 mg/dL (0.7-1.3); GFR 42.6; POTASSIUM 4.2 mmol/L (3.5-5.1); TOTAL BILIRUBIN 0.6 mg/dL (0.2-1.0); TOTAL PROTEIN 6.4 g/dL (6.4-8.2)
[2017-03-31] MEDS ORDERED: CHOLECALCIFEROL (VITAMIN D3) 400 UNIT TABLET PO SCH (09:00)
[2017-03-31] MEDS ORDERED: NON FORMULARY ITEM (Omeprazole 1 CAP) PO SCH (09:00)
[2017-03-31] MEDS ORDERED: OMEGA-3 FATTY ACIDS/FISH OIL 1,000 MG CAPSULE. PO SCH (09:00)
[2017-03-31] MEDS ORDERED: SPIRONOLACTONE 25 MG TABLET PO SCH (09:00)
[2017-03-31] MEDS ORDERED: NIACIN ER 500 MG TABLET.ER PO SCH (09:00)
[2017-03-31] MEDS ORDERED: ASPIRIN ENTERIC COATED 81 MG TABLET.DR. PO SCH (09:00)
[2017-03-31] MEDS ORDERED: PNEUMOC CONJ VACC 23-VALENT 0.5 ML VIAL. VAX IM ONE (09:00)
[2017-03-31] MEDS ORDERED: CALCITRIOL 0.25 MCG CAPSULE PO SCH (09:00)
[2017-03-31] MEDS: ALLOPURINOL 300 MG TABLET. PO SCH (09:22)
[2017-03-31] MEDS: LOSARTAN 50 MG TABLET. PO SCH (09:22)
[2017-03-31] MEDS: amLODIPine BESYLATE 5 MG TABLET PO SCH (09:22)
[2017-03-31] MEDS: CETIRIZINE HCL 10 MG TABLET PO SCH (09:23)
[2017-03-31] MEDS: ASCORBIC ACID 500 MG TABLET PO SCH (09:23)
[2017-03-31] MEDS: METOPROLOL TART IMMED RELEASE 25 MG TABLET PO SCH ×2 (09:23→20:25)
[2017-03-31] MEDS: PANTOPRAZOLE 20 MG TABLET. PO SCH (09:23)
[2017-03-31] MEDS: MAGNESIUM OXIDE 400 MG TABLET PO SCH (09:23)
[2017-03-31] MEDS: CHOLECALCIFEROL (VITAMIN D3) 1,000 UNIT TABLET PO SCH (09:23)
[2017-03-31] MEDS: FLUTICASONE 50MCG/NASAL SPRAY 16GM BOTTLE. NS SCH (09:24)
--- NOTE | 2017-03-31 09:38 | PDOC ---
SUBJECTIVE: continue to have some hemoptysis this morning he denie chest pain or sob. he denies any new neurological complaints. OBJECTIVE: we/wn nad Vital Signs: Vital Signs Date Time Temp Pulse Resp B/P (MAP) Pulse Ox O2 Delivery O2 Flow Rate FiO2 03/31/17 09:23 63 122/73 03/31/17 05:51 97.8 18 94 Room Air I & O Intake and Output 03/31/17 07:00 Intake Total 1130 ml Balance 1130 ml Intake Oral 1130 ml # Voids 6 Labs: Laboratory Tests Test 03/30/17 10:27 03/30/17 10:31 03/31/17 05:40 Glucose (Fingerstick) 104 mg/dL (70-99) White Blood Count 9.8 x10^3/uL (4.0-11.0) 9.2 x10^3/uL (4.0-11.0) Red Blood Count 4.40 x10^6/uL (4.30-5.70) 4.27 x10^6/uL (4.30-5.70) Hemoglobin 14.5 g/dL (13.0-17.5) 14.0 g/dL (13.0-17.5) Hematocrit 43.1 % (39.0-53.0) 41.7 % (39.0-53.0) Mean Corpuscular Volume 98 fL (79-100) 98 fL (79-100) Mean Corpuscular Hemoglobin 33 pg (25-35) 33 pg (25-35) Mean Corpuscular Hemoglobin Concent 34 g/dL (31-37) 34 g/dL (31-37) Red Cell Distribution Width 15.1 % (11.5-14.5) 14.9 % (11.5-14.5) Platelet Count 211 x10^3/uL (140-400) 212 x10^3/uL (140-400) Neutrophils (%) (Auto) 38 % (31-73) 45 % (31-73) Lymphocytes (%) (Auto) 45 % (24-48) 39 % (24-48) Monocytes (%) (Auto) 13 % (0-9) 12 % (0-9) Eosinophils (%) (Auto) 3 % (0-3) 4 % (0-3) Basophils (%) (Auto) 1 % (0-3) 1 % (0-3) Neutrophils # (Auto) 3.7 x10^3uL (1.8-7.7) 4.2 x10^3uL (1.8-7.7) Lymphocytes # (Auto) 4.4 x10^3/uL (1.0-4.8) 3.6 x10^3/uL (1.0-4.8) Monocytes # (Auto) 1.3 x10^3/uL (0.0-1.1) 1.1 x10^3/uL (0.0-1.1) Eosinophils # (Auto) 0.3 x10^3/uL (0.0-0.7) 0.3 x10^3/uL (0.0-0.7) Basophils # (Auto) 0.1 x10^3/uL (0.0-0.2) 0.0 x10^3/uL (0.0-0.2) Prothrombin Time 10.2 SEC (9.4-11.4) Prothromb Time International Ratio 1.0 (0.9-1.1) Activated Partial Thromboplast Time 25 SEC (23-33) Sodium Level 142 mmol/L (136-145) 141 mmol/L (136-145) Potassium Level 4.3 mmol/L (3.5-5.1) 4.2 mmol/L (3.5-5.1) Chloride Level 108 mmol/L (98-107) 107 mmol/L (98-107) Carbon Dioxide Level 26 mmol/L (21-32) 24 mmol/L (21-32) Anion Gap 8 (6-14) 10 (6-14) Blood Urea Nitrogen 24 mg/dL (8-26) 21 mg/dL (8-26) Creatinine 1.8 mg/dL (0.7-1.3) 1.6 mg/dL (0.7-1.3) Estimated GFR (Cockcroft-Gault) 37.2 42.6 BUN/Creatinine Ratio 13 (6-20) 13 (6-20) Glucose Level 99 mg/dL (70-99) 90 mg/dL (70-99) Calcium Level 9.2 mg/dL (8.5-10.1) 9.1 mg/dL (8.5-10.1) Total Bilirubin 0.6 mg/dL (0.2-1.0) 0.6 mg/dL (0.2-1.0) Aspartate Amino Transf (AST/SGOT) 17 U/L (15-37) 15 U/L (15-37) Alanine Aminotransferase (ALT/SGPT) 19 U/L (16-63) 17 U/L (16-63) Alkaline Phosphatase 116 U/L (46-116) 111 U/L (46-116) Troponin I Quantitative < 0.017 ng/mL (0-0.055) Total Protein 6.9 g/dL (6.4-8.2) 6.4 g/dL (6.4-8.2) Albumin 3.3 g/dL (3.4-5.0) 3.1 g/dL (3.4-5.0) Albumin/Globulin Ratio 0.9 (1.0-1.7) 0.9 (1.0-1.7) Physical Exam: Mental status: alert and oriented to time x3. The speech was fluent. There were no language dysfunctions. Memory: the patient recalls 3-3 objects after 1 and 3 minutes. Judgment and abstracting thinking were intact. Mood: non- depressed at this time. The patient denies hallucination , delusion or suicidal ideation. 2- Cranial Nerves: Visual [place] were full. The pupils were equal and reactive to light and accommodation. The extra ocular movements were intact; there was no nystagmus on horizontal or vertical gazes. Fundoscopic exam revealed no retinal bleeding or papilledma. There were no facial, motor or sensory deficits. The hearing was intact. The palate was elevated symmetrically. The sternocleidomastoids were powerful bilaterally. The patient protruded the tongue in the midline without fasciculations or atrophy. 3- Motor Examination: No focal muscle bulk wasting. The strength was 5/5 throughout. 4- Sensory Examination: Normal pinprick, light touch, vibratory, and position senses. 5- Deep Tendon Reflexes: Were symmetric and active without pathologic responses. 6- Coordinations and Gait: Normal. VITALS ASSESSMENT: . Previous anterior spinal fusion and instrumentation from C4 through C7. 2. Moderate multilevel degenerative change with moderate central spinal stenosis at C6-7. 3. No acute bony abnormality is detected. Assessment/Plan 1- right upper extremity numbness and weakness resolved r/o TIA 2 CAD,HTN,Hyperlipidemia, gout, hemoptysis plan: 1 echocardiogram 2 Continue with current care and medication Malcom APPIAH MD Mar 31, 2017 00:49 Signed By: Malcom APPIAH MD, M F MD Mar 31, 2017 09:38
[2017-03-31 10:22] VITALS: BP 118/72
[2017-03-31 14:43] VITALS: BP 114/73
--- NOTE | 2017-03-31 15:40 | PDOC ---
SUBJECTIVE: Recurrent episodes of hemoptysis right upper extremity weakness and numbness OBJECTIVE: The patient is doing well has had no further weakness Vital Signs: Vital Signs Date Time Temp Pulse Resp B/P (MAP) Pulse Ox O2 Delivery O2 Flow Rate FiO2 03/31/17 14:43 98.4 62 20 114/73 (87) 93 Room Air I & O Intake and Output 03/31/17 07:00 Intake Total 1130 ml Balance 1130 ml Intake Oral 1130 ml # Voids 6 Labs: Laboratory Tests Test 03/30/17 10:27 03/30/17 10:31 03/31/17 05:40 Glucose (Fingerstick) 104 mg/dL (70-99) White Blood Count 9.8 x10^3/uL (4.0-11.0) 9.2 x10^3/uL (4.0-11.0) Red Blood Count 4.40 x10^6/uL (4.30-5.70) 4.27 x10^6/uL (4.30-5.70) Hemoglobin 14.5 g/dL (13.0-17.5) 14.0 g/dL (13.0-17.5) Hematocrit 43.1 % (39.0-53.0) 41.7 % (39.0-53.0) Mean Corpuscular Volume 98 fL (79-100) 98 fL (79-100) Mean Corpuscular Hemoglobin 33 pg (25-35) 33 pg (25-35) Mean Corpuscular Hemoglobin Concent 34 g/dL (31-37) 34 g/dL (31-37) Red Cell Distribution Width 15.1 % (11.5-14.5) 14.9 % (11.5-14.5) Platelet Count 211 x10^3/uL (140-400) 212 x10^3/uL (140-400) Neutrophils (%) (Auto) 38 % (31-73) 45 % (31-73) Lymphocytes (%) (Auto) 45 % (24-48) 39 % (24-48) Monocytes (%) (Auto) 13 % (0-9) 12 % (0-9) Eosinophils (%) (Auto) 3 % (0-3) 4 % (0-3) Basophils (%) (Auto) 1 % (0-3) 1 % (0-3) Neutrophils # (Auto) 3.7 x10^3uL (1.8-7.7) 4.2 x10^3uL (1.8-7.7) Lymphocytes # (Auto) 4.4 x10^3/uL (1.0-4.8) 3.6 x10^3/uL (1.0-4.8) Monocytes # (Auto) 1.3 x10^3/uL (0.0-1.1) 1.1 x10^3/uL (0.0-1.1) Eosinophils # (Auto) 0.3 x10^3/uL (0.0-0.7) 0.3 x10^3/uL (0.0-0.7) Basophils # (Auto) 0.1 x10^3/uL (0.0-0.2) 0.0 x10^3/uL (0.0-0.2) Prothrombin Time 10.2 SEC (9.4-11.4) Prothromb Time International Ratio 1.0 (0.9-1.1) Activated Partial Thromboplast Time 25 SEC (23-33) Sodium Level 142 mmol/L (136-145) 141 mmol/L (136-145) Potassium Level 4.3 mmol/L (3.5-5.1) 4.2 mmol/L (3.5-5.1) Chloride Level 108 mmol/L (98-107) 107 mmol/L (98-107) Carbon Dioxide Level 26 mmol/L (21-32) 24 mmol/L (21-32) Anion Gap 8 (6-14) 10 (6-14) Blood Urea Nitrogen 24 mg/dL (8-26) 21 mg/dL (8-26) Creatinine 1.8 mg/dL (0.7-1.3) 1.6 mg/dL (0.7-1.3) Estimated GFR (Cockcroft-Gault) 37.2 42.6 BUN/Creatinine Ratio 13 (6-20) 13 (6-20) Glucose Level 99 mg/dL (70-99) 90 mg/dL (70-99) Calcium Level 9.2 mg/dL (8.5-10.1) 9.1 mg/dL (8.5-10.1) Total Bilirubin 0.6 mg/dL (0.2-1.0) 0.6 mg/dL (0.2-1.0) Aspartate Amino Transf (AST/SGOT) 17 U/L (15-37) 15 U/L (15-37) Alanine Aminotransferase (ALT/SGPT) 19 U/L (16-63) 17 U/L (16-63) Alkaline Phosphatase 116 U/L (46-116) 111 U/L (46-116) Troponin I Quantitative < 0.017 ng/mL (0-0.055) Total Protein 6.9 g/dL (6.4-8.2) 6.4 g/dL (6.4-8.2) Albumin 3.3 g/dL (3.4-5.0) 3.1 g/dL (3.4-5.0) Albumin/Globulin Ratio 0.9 (1.0-1.7) 0.9 (1.0-1.7) ASSESSMENT: Problem List: Facial contusion Fall at home Hemoptysis Right arm weakness PLAN: Given hemoptysis for which we will arrange a V/Q Scan Await the result of Echocardiography NORMA ALMEIDA MD Mar 31, 2017 15:40
--- NOTE | 2017-03-31 17:10 | CARD ---
APPROVED REPORT EXAM: Two-dimensional and M-mode echocardiogram with Doppler and color Doppler. Other Information Quality : GoodHR: 59bpm Rhythm : Bradycardia INDICATION Stroke work-up RISK FACTORS Obesity 2D DIMENSIONS RVDd3.6 (2.9-3.5cm)Left Atrium(2D)3.8 (1.6-4.0cm) IVSd1.2 (0.7-1.1cm)Aortic Root(2D)3.6 (2.0-3.7cm) LVDd5.3 (3.9-5.9cm)LVOT Diameter2.3 (1.8-2.4cm) PWd1.2 (0.7-1.1cm)LVDs3.3 (2.5-4.0cm) FS (%) 36.8 %SV88.7 ml LVEF(%)66.2 (>50%) Aortic Valve AoV Peak Cody.134.4cm/sAoV VTI29.9cm AO Peak GR.7.2mmHgLVOT Peak Cody.109.7cm/s LVOT VTI 23.16cmAO Mean GR.4mmHg JAYNA (VMAX)3.05hp2PFX (VTI)3.16cm2 Mitral Valve MV E Anekcwsj82.5cm/sMV E Peak Gr.3mmHg MV DECEL [id number] A Bmijcpdm36.7cm/s MV E Mean Gr.1mmHgE/A Ratio0.7 MV A [id number] Pulmonary Valve PV Peak Aukwdadg95.6cm/sPV Peak Grad.3mmHg Pulmonary Vein S1 Ieaxsnmk56.8cm/sD2 Kxxhrvla03.1cm/s LEFT VENTRICLE The left ventricle is normal size. There is mild concentric left ventricular hypertrophy. The left ve ntricular systolic function is normal. The Ejection Fraction is 55-60%. There is normal LV segmental wall motion. Transmitral Doppler flow pattern is Grade I-abnormal relaxation pattern. No left ventric le thrombus noted on this study. There is no ventricular septal defect visualized. RIGHT VENTRICLE The right ventricle is normal size. There is normal right ventricular wall thickness. The right ventr icular systolic function is normal. ATRIA The left atrium size is normal. The right atrium size is normal. The interatrial septum is intact wit h no evidence for an atrial septal defect or patent foramen ovale as noted on 2-D or Doppler imaging. AORTIC VALVE The aortic valve is mildly sclerotic. The aortic valve is trileaflet. Doppler and Color Flow revealed mild aortic regurgitation. There is no significant aortic valvular stenosis. MITRAL VALVE Mitral annular calcification is mild. The mitral valve leaflets are thickened. There is no evidence o f mitral valve prolapse. There is no mitral valve stenosis. Doppler and Color Flow revealed trace michaela ral regurgitation. TRICUSPID VALVE Doppler and Color Flow revealed no tricuspid valve regurgitation noted. Right ventricular systolic pr essure is normal. PULMONIC VALVE The pulmonic valve is not well visualized but appears to pen well. Doppler and Color Flow revealed tr christiano pulmonic valvular regurgitation. There is no pulmonic valvular stenosis by spectral Doppler. GREAT VESSELS The aortic root is normal in size. The ascending aorta is mildly dilated. The pulmonary artery is nor mal. The IVC is obscured, unable to assess. PERICARDIAL EFFUSION There is no evidence of significant pericardial effusion. Critical Notification Critical Value: No <Conclusion> The left ventricular systolic function is normal. The Ejection Fraction is 55-60%. There is normal LV segmental wall motion. Transmitral Doppler flow pattern is Grade I-abnormal relaxation pattern. Mild aortic regurgitation. Trace mitral regurgitation. There is no evidence of significant pericardial effusion.
--- NOTE | 2017-03-31 18:19 | RAD ---
Indication: Hemoptysis. The patient was administered 17 mCi of xenon-133 gas and inspiratory, equilibrium and washout views over the chest were obtained. Next, the patient was administered 5.5 mCi of technetium 99m MAA intravenously and imaging over the chest was obtained in multiple obliquities. The ventilation portion of the exam demonstrates fairly homogeneous ventilation of both lungs. There is normal washout. No ventilation defect is detected. The perfusion portion of the study demonstrates homogeneous perfusion of both lungs. No pleural-based perfusion defect is detected. IMPRESSION: Normal ventilation and perfusion lung scan. Electronically signed by: Donald Lazaro MD (03/31/2017 6:15 PM) [facility]
[2017-03-31 18:50] VITALS: BP 109/61
[2017-03-31] MEDS: ATORVASTATIN CALCIUM 20 MG TABLET PO SCH (20:25)
[2017-03-31 23:15] VITALS: BP 123/76
[2017-04-01 06:05] VITALS: BP 116/67
[2017-04-01] MEDS: FLUTICASONE 50MCG/NASAL SPRAY 16GM BOTTLE. NS SCH (08:32)
[2017-04-01] MEDS: PANTOPRAZOLE 20 MG TABLET. PO SCH (08:33)
[2017-04-01] MEDS: METOPROLOL TART IMMED RELEASE 25 MG TABLET PO SCH (08:33)
[2017-04-01] MEDS: CETIRIZINE HCL 10 MG TABLET PO SCH (08:34)
[2017-04-01] MEDS: ALLOPURINOL 300 MG TABLET. PO SCH (08:34)
[2017-04-01] MEDS: amLODIPine BESYLATE 5 MG TABLET PO SCH (08:34)
[2017-04-01] MEDS: LOSARTAN 50 MG TABLET. PO SCH (08:34)
[2017-04-01] MEDS: MAGNESIUM OXIDE 400 MG TABLET PO SCH (08:35)
[2017-04-01] MEDS: CHOLECALCIFEROL (VITAMIN D3) 1,000 UNIT TABLET PO SCH (08:35)
[2017-04-01] MEDS: ASCORBIC ACID 500 MG TABLET PO SCH (08:35)
[2017-04-01] MEDS ORDERED: ASPIRIN ENTERIC COATED 81 MG TABLET.DR. PO SCH (09:00)
--- NOTE | 2017-04-01 10:11 | PDOC ---
SUBJECTIVE: the patient denies any new neurological c/o. he has not had hemoptysis since yesterday. he denies chest pain or sob. ehocardiogram and vQ perfusion ARE UNREMARKABLE. OBJECTIVE: OBESE WM NAD Vital Signs: Vital Signs Date Time Temp Pulse Resp B/P (MAP) Pulse Ox O2 Delivery O2 Flow Rate FiO2 04/01/17 08:34 62 116/67 04/01/17 08:00 Room Air 04/01/17 06:05 98.2 18 94 I & O Intake and Output 04/01/17 07:00 Intake Total 1700 ml Balance 1700 ml Intake Oral 1700 ml # Voids 2 Labs: Laboratory Tests Test 03/30/17 10:27 03/30/17 10:31 03/31/17 05:40 Glucose (Fingerstick) 104 mg/dL (70-99) White Blood Count 9.8 x10^3/uL (4.0-11.0) 9.2 x10^3/uL (4.0-11.0) Red Blood Count 4.40 x10^6/uL (4.30-5.70) 4.27 x10^6/uL (4.30-5.70) Hemoglobin 14.5 g/dL (13.0-17.5) 14.0 g/dL (13.0-17.5) Hematocrit 43.1 % (39.0-53.0) 41.7 % (39.0-53.0) Mean Corpuscular Volume 98 fL (79-100) 98 fL (79-100) Mean Corpuscular Hemoglobin 33 pg (25-35) 33 pg (25-35) Mean Corpuscular Hemoglobin Concent 34 g/dL (31-37) 34 g/dL (31-37) Red Cell Distribution Width 15.1 % (11.5-14.5) 14.9 % (11.5-14.5) Platelet Count 211 x10^3/uL (140-400) 212 x10^3/uL (140-400) Neutrophils (%) (Auto) 38 % (31-73) 45 % (31-73) Lymphocytes (%) (Auto) 45 % (24-48) 39 % (24-48) Monocytes (%) (Auto) 13 % (0-9) 12 % (0-9) Eosinophils (%) (Auto) 3 % (0-3) 4 % (0-3) Basophils (%) (Auto) 1 % (0-3) 1 % (0-3) Neutrophils # (Auto) 3.7 x10^3uL (1.8-7.7) 4.2 x10^3uL (1.8-7.7) Lymphocytes # (Auto) 4.4 x10^3/uL (1.0-4.8) 3.6 x10^3/uL (1.0-4.8) Monocytes # (Auto) 1.3 x10^3/uL (0.0-1.1) 1.1 x10^3/uL (0.0-1.1) Eosinophils # (Auto) 0.3 x10^3/uL (0.0-0.7) 0.3 x10^3/uL (0.0-0.7) Basophils # (Auto) 0.1 x10^3/uL (0.0-0.2) 0.0 x10^3/uL (0.0-0.2) Prothrombin Time 10.2 SEC (9.4-11.4) Prothromb Time International Ratio 1.0 (0.9-1.1) Activated Partial Thromboplast Time 25 SEC (23-33) Sodium Level 142 mmol/L (136-145) 141 mmol/L (136-145) Potassium Level 4.3 mmol/L (3.5-5.1) 4.2 mmol/L (3.5-5.1) Chloride Level 108 mmol/L (98-107) 107 mmol/L (98-107) Carbon Dioxide Level 26 mmol/L (21-32) 24 mmol/L (21-32) Anion Gap 8 (6-14) 10 (6-14) Blood Urea Nitrogen 24 mg/dL (8-26) 21 mg/dL (8-26) Creatinine 1.8 mg/dL (0.7-1.3) 1.6 mg/dL (0.7-1.3) Estimated GFR (Cockcroft-Gault) 37.2 42.6 BUN/Creatinine Ratio 13 (6-20) 13 (6-20) Glucose Level 99 mg/dL (70-99) 90 mg/dL (70-99) Calcium Level 9.2 mg/dL (8.5-10.1) 9.1 mg/dL (8.5-10.1) Total Bilirubin 0.6 mg/dL (0.2-1.0) 0.6 mg/dL (0.2-1.0) Aspartate Amino Transf (AST/SGOT) 17 U/L (15-37) 15 U/L (15-37) Alanine Aminotransferase (ALT/SGPT) 19 U/L (16-63) 17 U/L (16-63) Alkaline Phosphatase 116 U/L (46-116) 111 U/L (46-116) Troponin I Quantitative < 0.017 ng/mL (0-0.055) Total Protein 6.9 g/dL (6.4-8.2) 6.4 g/dL (6.4-8.2) Albumin 3.3 g/dL (3.4-5.0) 3.1 g/dL (3.4-5.0) Albumin/Globulin Ratio 0.9 (1.0-1.7) 0.9 (1.0-1.7) Physical Exam: 1- Mental status: alert and oriented to time x3. The speech was fluent. There were no language dysfunctions. Memory: the patient recalls 3-3 objects after 1 and 3 minutes. Judgment and abstracting thinking were intact. Mood: non- depressed at this time. The patient denies hallucination , delusion or suicidal ideation. 2- Cranial Nerves: Visual lockwood were full. The pupils were equal and reactive to light and accommodation. The extra ocular movements were intact; there was no nystagmus on horizontal or vertical gazes. Fundoscopic exam revealed no retinal bleeding or papilledma. There were no facial, motor or sensory deficits. The hearing was intact. The palate was elevated symmetrically. The sternocleidomastoids were powerful bilaterally. The patient protruded the tongue in the midline without fasciculations or atrophy. 3- Motor Examination: No focal muscle bulk wasting. The strength was 5/5 throughout. 4- Sensory Examination: Normal pinprick, light touch, vibratory, and position senses. 5- Deep Tendon Reflexes: Were symmetric and active without pathologic responses. 6- Coordinations and Gait: Normal. ASSESSMENT: 1- Numbness and weakness of the right upper extremity resolved r/o tia 2- CAD, HTN,HLD, S/P STENT PLACEMENT 3- HEMOPTYSIS PROBABLY SECONDARY TO ASPIRINE. plan : CONTINUE WITH CURRENT CARE .DISCUSSED OTHER OPTION PLAVIX. Malcom APPIAH MD Apr 01, 2017 10:11
[2017-04-01 10:43] VITALS: BP 108/74
== END 2017-04-01 12:01 | disposition home or self-care (01) | DRG 69 ==
LOC: ER 10:16 → 1 SOUTH 12:41 → OBSVTOIN 19:25
PROVIDERS: ADMIT Internal Medicine; ATTEND Internal Medicine
DX: G45.9 Transient cerebral ischemic attack, unspecified (principal); R04.2 Hemoptysis; E78.00 Pure hypercholesterolemia, unspecified; E78.5 Hyperlipidemia, unspecified; I25.10 Atherosclerotic heart disease of native coronary artery without angina pectoris; M10.9 Gout, unspecified; S00.83XA Contusion of other part of head, initial encounter; W18.39XA Other fall on same level, initial encounter; I12.9 Hypertensive chronic kidney disease with stage 1 through stage 4 chronic kidney disease, or unspecified chronic kidney disease; R20.0 Anesthesia of skin; E66.9 Obesity, unspecified; N18.9 Chronic kidney disease, unspecified; Y93.89 Activity, other specified; Y99.8 Other external cause status; Y92.098 Other place in other non-institutional residence as the place of occurrence of the external cause; Z87.442 Personal history of urinary calculi; Z90.81 Acquired absence of spleen; Z98.1 Arthrodesis status; Z88.0 Allergy status to penicillin; Z88.2 Allergy status to sulfonamides; Z68.35 Body mass index [BMI] 35.0-35.9, adult
CPT/HCPCS: 36415; 70450; 71010; 72125; 78582; 80053; 82947; 84484; 85027; 85610; 85730; 90732; 93005; 93306; 93880; 96374; A9540; A9558; G0378; G0379; 99285-25

== ENCOUNTER → 2018-01-23 | Outpatient (CLI) | payer MEDICARE, OTHER ==
[~2018-01-23] MED LIST changes: +AMLO5TAB2 PO; +ASCO500T2 PO; +ATOR40TA59 PO; -CALC0.5C PO; +CALC0.5C8 PO; +CHOL500016 PO; +FLUT16SP21 NS; +LOSA100T6 PO; +NITR0.4T22 SL; +OMEP40CA5 PO
[2018-01-23 12:33] LABS: ALBUMIN/GLOBULIN RATIO 0.8 (1.0-1.7); CALCIUM 9.3 mg/dL (8.5-10.1); CREATININE 1.7 mg/dL (0.7-1.3); GFR 39.6; POTASSIUM 4.2 mmol/L (3.5-5.1); TOTAL BILIRUBIN 0.8 mg/dL (0.2-1.0); TOTAL PROTEIN 6.8 g/dL (6.4-8.2)
== END | disposition home or self-care (01) ==
LOC: LAB 10:34
PROVIDERS: ATTEND Nurse Practitioner
DX: E78.5 Hyperlipidemia, unspecified (principal)
CPT/HCPCS: 36415; 80053; 80061

== ENCOUNTER → 2018-05-24 | Outpatient (CLI) | payer MEDICARE, OTHER ==
[~2018-05-24] MED LIST changes: -INDO50CA PO; +INDO50CA5 PO; -SPIR25TA3 PO; +SPIR25TA5 PO
[2018-05-24 12:57] LABS: BASO % 1 % (0-3); EOS # 0.1 x10^3/uL (0.0-0.7); EOS % 1 % (0-3); HEMATOCRIT 48.2 % (39.0-53.0); HEMOGLOBIN 16.3 g/dL (13.0-17.5); LYMPH # 3.6 x10^3/uL (1.0-4.8); LYMPH % 39 % (24-48); MEAN CORPUSCULAR HEMOGLOBIN 33 pg (25-35); MEAN CORPUSCULAR HGB CONC 34 g/dL (31-37); MEAN CORPUSCULAR VOLUME 98 fL (79-100); MONO % 11 % (0-9); NEUT # 4.6 x10^3uL (1.8-7.7); NEUT % 49 % (31-73); PLATELET COUNT 217 x10^3/uL (140-400); RED BLOOD COUNT 4.92 x10^6/uL (4.30-5.70); RED CELL DISTRIBUTION WIDTH 15.2 % (11.5-14.5); WHITE BLOOD COUNT 9.4 x10^3/uL (4.0-11.0)
[2018-05-24 13:07] LABS: ALBUMIN 3.3 g/dL (3.4-5.0); CALCIUM 9.5 mg/dL (8.5-10.1); CREATININE 1.8 mg/dL (0.7-1.3); GFR 37.1; PHOSPHORUS 2.7 mg/dL (2.6-4.7); POTASSIUM 4.7 mmol/L (3.5-5.1)
[2018-05-25 05:07] LABS: CALCIUM PTH 9.4 mg/dL (8.6-10.2); CREATININE PTH 1.63 mg/dL (0.76-1.27); PTH INTACT 60 pg/mL (15-65)
[2018-05-25 09:09] LABS: UR PROTEIN 20.4 mg/dL (Not Estab.)
[2018-05-26 16:12] LABS: TOTAL SERUM CREATININE 1.77 mg/dL (0.76-1.27); TOTAL URINE CREATININE 109.2 mg/dL (Not Estab.)
== END | disposition home or self-care (01) ==
LOC: LAB 12:28
PROVIDERS: ATTEND Internal Medicine Nephrology
DX: I12.9 Hypertensive chronic kidney disease with stage 1 through stage 4 chronic kidney disease, or unspecified chronic kidney disease (principal); N18.2 Chronic kidney disease, stage 2 (mild); E78.5 Hyperlipidemia, unspecified; E78.00 Pure hypercholesterolemia, unspecified; I25.10 Atherosclerotic heart disease of native coronary artery without angina pectoris; Z95.5 Presence of coronary angioplasty implant and graft; Z87.442 Personal history of urinary calculi; Z86.79 Personal history of other diseases of the circulatory system; Z87.891 Personal history of nicotine dependence; Z90.81 Acquired absence of spleen; Z88.2 Allergy status to sulfonamides; Z88.0 Allergy status to penicillin; Z68.35 Body mass index [BMI] 35.0-35.9, adult
CPT/HCPCS: 36415; 80069; 82575; 83970; 84156; 85025

== ENCOUNTER → 2018-07-26 | Outpatient (CLI) | payer MEDICARE, OTHER ==
[~2018-07-26] MED LIST changes: -AMLO5TAB2 PO; +AMLO5TAB7 PO; -LOSA100T6 PO; +LOSA100T7 PO
== END | disposition home or self-care (01) ==
LOC: LAB 10:39
PROVIDERS: ATTEND Nurse Practitioner
DX: E78.5 Hyperlipidemia, unspecified (principal)
CPT/HCPCS: 80061

== ENCOUNTER → 2018-08-07 | Outpatient (CLI) | payer MEDICARE, OTHER ==
[2018-08-07 12:30] LABS: ALBUMIN 3.3 g/dL (3.4-5.0); ALBUMIN/GLOBULIN RATIO 0.9 (1.0-1.7); CALCIUM 9.5 mg/dL (8.5-10.1); CREATININE 1.9 mg/dL (0.7-1.3); GFR 34.8; POTASSIUM 4.1 mmol/L (3.5-5.1); TOTAL BILIRUBIN 0.8 mg/dL (0.2-1.0); TOTAL PROTEIN 6.9 g/dL (6.4-8.2)
== END | disposition home or self-care (01) ==
LOC: LAB 11:06
PROVIDERS: ATTEND Nurse Practitioner
DX: E78.49 Other hyperlipidemia (principal)
CPT/HCPCS: 36415; 80053

== ENCOUNTER → 2019-05-22 | Outpatient (CLI) | payer MEDICARE, OTHER ==
[~2019-05-22] MED LIST changes: +AMLO5TAB10 PO; -AMLO5TAB7 PO; +INDO50CA15 PO; -INDO50CA5 PO; +LOSA100T14 PO; -LOSA100T7 PO; +OMEP20CA10 PO; -OMEP20CA9 PO
[2019-05-22 12:23] LABS: BASO # 0.1 x10^3/uL (0.0-0.2); BASO % 1 % (0-3); EOS # 0.2 x10^3/uL (0.0-0.7); EOS % 2 % (0-3); HEMATOCRIT 47.9 % (39.0-53.0); LYMPH # 3.9 x10^3/uL (1.0-4.8); LYMPH % 39 % (24-48); MEAN CORPUSCULAR HEMOGLOBIN 33 pg (25-35); MEAN CORPUSCULAR HGB CONC 33 g/dL (31-37); MEAN CORPUSCULAR VOLUME 99 fL (79-100); MONO # 0.9 x10^3/uL (0.0-1.1); MONO % 9 % (0-9); NEUT # 4.9 x10^3uL (1.8-7.7); NEUT % 49 % (31-73); PLATELET COUNT 245 x10^3/uL (140-400); RED BLOOD COUNT 4.84 x10^6/uL (4.30-5.70); RED CELL DISTRIBUTION WIDTH 14.6 % (11.5-14.5); WHITE BLOOD COUNT 10.1 x10^3/uL (4.0-11.0)
[2019-05-22 12:28] LABS: ALBUMIN 3.3 g/dL (3.4-5.0); CALCIUM 9.8 mg/dL (8.5-10.1); CREATININE 1.9 mg/dL (0.7-1.3); GFR 34.7; PHOSPHORUS 2.5 mg/dL (2.6-4.7); URIC ACID 3.6 mg/dL (3.5-7.2)
[2019-05-23 01:08] LABS: CALCIUM PTH 10.1 mg/dL (8.6-10.2); CREATININE PTH 1.84 mg/dL (0.76-1.27); PTH INTACT 58 pg/mL (15-65)
== END | disposition home or self-care (01) ==
LOC: LAB 11:43
PROVIDERS: ATTEND Internal Medicine Nephrology
DX: I12.9 Hypertensive chronic kidney disease with stage 1 through stage 4 chronic kidney disease, or unspecified chronic kidney disease (principal); N18.2 Chronic kidney disease, stage 2 (mild); E79.0 Hyperuricemia without signs of inflammatory arthritis and tophaceous disease; R80.9 Proteinuria, unspecified; Z68.36 Body mass index [BMI] 36.0-36.9, adult
CPT/HCPCS: 36415; 80069; 83970; 84550; 85025

== ENCOUNTER → 2019-10-19 | Outpatient (CLI) | payer MEDICARE, OTHER ==
[~2019-10-19] MED LIST changes: -FLUT30CR TP; +FLUT30CR2 TP; -OMEP20CA10 PO; +OMEP20CA16 PO; +OMEP40CA45 PO; -OMEP40CA5 PO
[2019-10-19 12:05] LABS: ALBUMIN 3.3 g/dL (3.4-5.0); ALBUMIN/GLOBULIN RATIO 0.9 (1.0-1.7); CALCIUM 9.5 mg/dL (8.5-10.1); GFR 32.6; POTASSIUM 4.4 mmol/L (3.5-5.1); TOTAL BILIRUBIN 0.6 mg/dL (0.2-1.0); TOTAL PROTEIN 6.9 g/dL (6.4-8.2)
== END | disposition home or self-care (01) ==
LOC: LAB 11:20
PROVIDERS: ATTEND Nurse Practitioner
DX: E78.5 Hyperlipidemia, unspecified (principal)
CPT/HCPCS: 36415; 80053; 80061

== ENCOUNTER → 2019-12-18 | Outpatient (CLI) | payer MEDICARE, OTHER ==
--- NOTE | 2019-12-18 11:30 | RAD ---
Examination: HAND RIGHT 2V History: Right hand pain Comparison/Correlation: None Findings: Frontal and lateral images of the right hand were obtained. Mild narrowing of second and third digit distal interphalangeal joints is noted. No acute fracture or bone destruction. Soft tissues are unremarkable. Spurring of the metacarpal head noted. Impression: No acute processes. No significant degenerative change. Electronically signed by: Jose Luis Lake MD (12/18/2019 11:27 AM) [id number]
[2019-12-18 11:59] LABS: ALBUMIN 3.2 g/dL (3.4-5.0); ALBUMIN/GLOBULIN RATIO 0.9 (1.0-1.7); CALCIUM 9.5 mg/dL (8.5-10.1); CREATININE 1.7 mg/dL (0.7-1.3); GFR 39.4; MAGNESIUM 1.7 mg/dL (1.8-2.4); PHOSPHORUS 3.3 mg/dL (2.6-4.7); POTASSIUM 4.2 mmol/L (3.5-5.1); TOTAL BILIRUBIN 0.4 mg/dL (0.2-1.0); TOTAL PROTEIN 6.6 g/dL (6.4-8.2)
[2019-12-18 17:07] LABS: RHEUMATOID FACTOR <10.0 IU/mL (0.0-13.9)
[2019-12-19 23:06] LABS: CYCLIC CITRULLIN PEP AB 6 units (0-19)
== END | disposition home or self-care (01) ==
LOC: DXRAD 10:27
PROVIDERS: ATTEND Family Medicine
DX: Z12.5 Encounter for screening for malignant neoplasm of prostate (principal); M25.841 Other specified joint disorders, right hand; E78.5 Hyperlipidemia, unspecified; M10.9 Gout, unspecified; K21.9 Gastro-esophageal reflux disease without esophagitis; C91.10 Chronic lymphocytic leukemia of B-cell type not having achieved remission; E55.9 Vitamin D deficiency, unspecified; Z95.5 Presence of coronary angioplasty implant and graft
CPT/HCPCS: 36415; 73120; 80053; 80061; 83735; 84100; 86200; 86431; G0103

== ENCOUNTER → 2020-05-29 | Outpatient (CLI) | payer MEDICARE, OTHER ==
[~2020-05-29] MED LIST changes: -ASCO500T2 PO; +ASCO500T4 PO
[2020-05-29 11:55] LABS: BASO % 0 % (0-3); EOS # 0.3 x10^3/uL (0.0-0.7); EOS % 4 % (0-3); HEMATOCRIT 46.5 % (39.0-53.0); HEMOGLOBIN 15.3 g/dL (13.0-17.5); LYMPH # 3.7 x10^3/uL (1.0-4.8); LYMPH % 41 % (24-48); MEAN CORPUSCULAR HEMOGLOBIN 33 pg (25-35); MEAN CORPUSCULAR HGB CONC 33 g/dL (31-37); MEAN CORPUSCULAR VOLUME 100 fL (79-100); MONO # 1.1 x10^3/uL (0.0-1.1); MONO % 12 % (0-9); NEUT # 3.9 x10^3uL (1.8-7.7); NEUT % 43 % (31-73); PLATELET COUNT 214 x10^3/uL (140-400); RED BLOOD COUNT 4.66 x10^6/uL (4.30-5.70); RED CELL DISTRIBUTION WIDTH 15.1 % (11.5-14.5); WHITE BLOOD COUNT 9.1 x10^3/uL (4.0-11.0)
[2020-05-29 12:27] LABS: ALBUMIN 3.4 g/dL (3.4-5.0); CALCIUM 9.6 mg/dL (8.5-10.1); CREATININE 1.8 mg/dL (0.7-1.3); GFR 36.9; PHOSPHORUS 2.7 mg/dL (2.6-4.7); POTASSIUM 4.2 mmol/L (3.5-5.1); URIC ACID 3.6 mg/dL (3.5-7.2)
[2020-05-30 06:07] LABS: TOTAL SERUM CREATININE 1.73 mg/dL (0.76-1.27); TOTAL URINE CREATININE 83.7 mg/dL (Not Estab.); UR PROTEIN 8.8 mg/dL (Not Estab.)
[2020-05-31 17:07] LABS: CALCIUM PTH 9.8 mg/dL (8.6-10.2); CREATININE PTH 1.69 mg/dL (0.76-1.27); PTH INTACT 35 pg/mL (15-65)
== END | disposition home or self-care (01) ==
LOC: LAB 10:59
PROVIDERS: ATTEND Internal Medicine Nephrology
DX: E79.0 Hyperuricemia without signs of inflammatory arthritis and tophaceous disease (principal); N18.2 Chronic kidney disease, stage 2 (mild); I10 Essential (primary) hypertension; E83.42 Hypomagnesemia; R80.9 Proteinuria, unspecified; N25.81 Secondary hyperparathyroidism of renal origin
CPT/HCPCS: 36415; 80069; 82575; 83970; 84156; 84550; 85025

== ENCOUNTER → 2020-06-12 | Outpatient (CLI) | payer MEDICARE, OTHER | END | disposition home or self-care (01) | LOC: LAB 11:27 | PROVIDERS: ATTEND Nurse Practitioner | DX: E78.5 Hyperlipidemia, unspecified (principal) | CPT/HCPCS: 80061 ==

== ENCOUNTER → 2020-10-17 | Outpatient (CLI) | payer MEDICARE, OTHER ==
[~2020-10-17] MED LIST changes: +AMLO-186 PO; -AMLO5TAB10 PO
== END ==
LOC: LAB 10:30
PROVIDERS: ATTEND Nurse Anesthetist, Certified Registered
DX: Z01.812 Encounter for preprocedural laboratory examination (principal); H26.8 Other specified cataract; Z20.828 Contact with and (suspected) exposure to other viral communicable diseases
CPT/HCPCS: U0003

== ENCOUNTER → 2021-01-15 | Outpatient (CLI) | payer MEDICARE, OTHER ==
[~2021-01-15] MED LIST changes: -ACYC800T PO; +ACYC800T88 PO
[2021-01-15 11:12] LABS: ALBUMIN 3.3 g/dL (3.4-5.0); CALCIUM 9.2 mg/dL (8.5-10.1); GFR 32.6; POTASSIUM 4.1 mmol/L (3.5-5.1); TOTAL BILIRUBIN 0.6 mg/dL (0.2-1.0); TOTAL PROTEIN 6.7 g/dL (6.4-8.2)
== END ==
LOC: LAB 10:20
PROVIDERS: ATTEND Nurse Practitioner
DX: E78.5 Hyperlipidemia, unspecified (principal)
CPT/HCPCS: 36415; 80053; 80061

== ENCOUNTER → 2021-06-24 | Outpatient (CLI) | payer MEDICARE, OTHER ==
[~2021-06-24] MED LIST changes: -OMEP40CA45 PO; +OMEP40CA7 PO
[2021-06-24 13:50] LABS: ALBUMIN 3.3 g/dL (3.4-5.0); CALCIUM 9.6 mg/dL (8.5-10.1); CREATININE 1.6 mg/dL (0.7-1.3); GFR 42.1; POTASSIUM 4.4 mmol/L (3.5-5.1); URIC ACID 4.1 mg/dL (3.5-7.2)
[2021-06-24 13:55] LABS: BASO # 0.1 x10^3/uL (0.0-0.2); BASO % 1 % (0-3); EOS # 0.3 x10^3/uL (0.0-0.7); EOS % 3 % (0-3); HEMATOCRIT 42.5 % (39.0-53.0); HEMOGLOBIN 14.2 g/dL (13.0-17.5); LYMPH # 3.7 x10^3/uL (1.0-4.8); LYMPH % 39 % (24-48); MEAN CORPUSCULAR HEMOGLOBIN 33 pg (25-35); MEAN CORPUSCULAR HGB CONC 33 g/dL (31-37); MEAN CORPUSCULAR VOLUME 100 fL (79-100); MONO # 1.1 x10^3/uL (0.0-1.1); MONO % 11 % (0-9); NEUT # 4.4 x10^3uL (1.8-7.7); NEUT % 46 % (31-73); PLATELET COUNT 306 x10^3/uL (140-400); RED BLOOD COUNT 4.27 x10^6/uL (4.30-5.70); RED CELL DISTRIBUTION WIDTH 14.7 % (11.5-14.5); WHITE BLOOD COUNT 9.6 x10^3/uL (4.0-11.0)
[2021-06-24 14:31] LABS: PLT ESTIMATE ADEQUATE (ADEQUATE)
[2021-06-25 08:10] LABS: CALCIUM PTH 9.8 mg/dL (8.6-10.2); CREATININE PTH 1.61 mg/dL (0.76-1.27); PTH INTACT 45 pg/mL (15-65)
[2021-06-25 13:51] LABS: CREATININE,RANDOM URINE 52.4 mg/dL (Not Establ.)
== END ==
LOC: LAB 13:07
PROVIDERS: ATTEND Internal Medicine Nephrology
DX: I12.9 Hypertensive chronic kidney disease with stage 1 through stage 4 chronic kidney disease, or unspecified chronic kidney disease (principal); N18.2 Chronic kidney disease, stage 2 (mild); R80.9 Proteinuria, unspecified; E79.0 Hyperuricemia without signs of inflammatory arthritis and tophaceous disease
CPT/HCPCS: 36415; 80069; 82570; 83970; 84156; 84550; 85025

== ENCOUNTER 2021-10-10 14:46 | Inpatient (IN) | payer MEDICARE, OTHER ==
[~2021-10-10] VITALS: Ht 182.9 cm; Wt 117.6 kg
--- NOTE | 2021-10-10 16:49 | PHYS DOC ---
Past History Past Medical History: Cancer, Heart Disease, Hypertension, Other (DEVON TRIMBLE APRN) Past Surgical History: Cancer Surgery, Spleenectomy, Other (DEVON TRIMBLE APRN) Alcohol Use: None Drug Use: None (DEVON TRIMBLE APRN) General Adult EDM: Chief Complaint: MULTIPLE COMPLAINTS HPI: HPI: Patient is a 76-year-old male who presents to the emergency department today for shortness of breath, fever, productive cough, nausea, fatigue and sore throat that started 3 days ago. Patient was diagnosed with influenza on September 23 and was admitted for 5 days at that time. Patient does not wear oxygen at home but was hypoxic upon ER arrival at 88% on room air. Patient was titrated up on 2 L via nasal cannula. He states that he does wear CPAP at night. He denies any vomiting, diarrhea, abdominal pain, chest pain. (DEVON TRIMBLE APRN) Review of Systems: Review of Systems: Constitutional: negative unless reported in HPI Eyes: negative unless reported in HPI HENT: negative unless reported in HPI Respiratory: negative unless reported in HPI Cardiovascular: negative unless reported in HPI GI: negative unless reported in HPI : negative unless reported in HPI Musculoskeletal: negative unless reported in HPI Integument: negative unless reported in HPI Neurologic: negative unless reported in HPI Endocrine: negative unless reported in HPI Lymphatic: negative unless reported in HPI Psychiatric: negative unless reported in HPI (DEVON TRIMBLE APRN) Allergies: Allergies: Allergies Coded Allergies Type Severity Reaction Last Updated Verified Penicillins Allergy Intermediate 03/31/17 Yes Sulfa (Sulfonamide Antibiotics) Allergy Intermediate 03/31/17 Yes (DEVON TRIMBLE APRN) Physical Exam: PE: Constitutional: Well developed, well nourished, no acute distress, non-toxic appearance. [] HENT: Normocephalic, atraumatic, bilateral external ears normal, oropharynx moist, no oral exudates, nose normal. [] Eyes: PERRL, EOMI, conjunctiva normal, no discharge. [] Neck: Normal range of motion, no stridor Cardiovascular:Heart rate regular rhythm, no murmur [] Lungs & Thorax: Bilateral breath sounds clear to auscultation [] Abdomen: Bowel sounds normal, soft, no tenderness, no masses, no pulsatile masses. [] Skin: Warm, dry, no erythema, no rash. [] Back: Normal range of motion Extremities: No tenderness, no cyanosis, no clubbing, ROM intact, no edema. [] Neurologic: Alert and oriented X 3, normal motor function, normal sensory function, no focal deficits noted. [] Psychologic: Affect normal, judgement normal, mood normal. [] (DEVON TRIMBLE APRN) Current Patient Data: Labs: Laboratory Tests Test 10/10/21 16:44 White Blood Count 7.6 x10^3/uL Red Blood Count 4.56 x10^6/uL Hemoglobin 14.8 g/dL Hematocrit 44.9 % Mean Corpuscular Volume 98 fL Mean Corpuscular Hemoglobin 33 pg Mean Corpuscular Hemoglobin Concent 33 g/dL Red Cell Distribution Width 14.5 % Platelet Count 155 x10^3/uL Neutrophils (%) (Auto) 51 % Lymphocytes (%) (Auto) 34 % Monocytes (%) (Auto) 15 % Eosinophils (%) (Auto) 0 % Basophils (%) (Auto) 1 % Neutrophils # (Auto) 3.9 x10^3uL Lymphocytes # (Auto) 2.6 x10^3/uL Monocytes # (Auto) 1.2 x10^3/uL Eosinophils # (Auto) 0.0 x10^3/uL Basophils # (Auto) 0.0 x10^3/uL Sodium Level 136 mmol/L Potassium Level 4.7 mmol/L Chloride Level 100 mmol/L Carbon Dioxide Level 26 mmol/L Anion Gap 10 Blood Urea Nitrogen 23 mg/dL Creatinine 2.4 mg/dL Estimated GFR (Cockcroft-Gault) 26.3 BUN/Creatinine Ratio 10 Glucose Level 98 mg/dL Calcium Level 8.8 mg/dL Total Bilirubin 0.5 mg/dL Aspartate Amino Transf (AST/SGOT) 35 U/L Alanine Aminotransferase (ALT/SGPT) 29 U/L Alkaline Phosphatase 106 U/L Troponin I High Sensitivity 23 ng/L Total Protein 6.6 g/dL Albumin 3.1 g/dL Albumin/Globulin Ratio 0.9 Influenza Type A (Rapid) Positive Influenza Type B (Rapid) Negative SARS-CoV-2 Antigen (Rapid) Negative Vital Signs: Vital Signs Date Time Temp Pulse Resp B/P (MAP) Pulse Ox O2 Delivery O2 Flow Rate FiO2 10/10/21 16:28 98.1 67 22 101/52 (68) 88 Room Air (DEVON TRIMBLE APRN) EKG: EKG: EKG performed by ER staff at 1624 shows sinus rhythm with with a rate of 67, QTc of 409, no STEMI read by Dr. Krishna [] (DEVON TRIMBLE APRN) Radiology/Procedures: Radiology/Procedures: []PROCEDURE: PORTABLE CHEST 1V Chest AP portable at 1657: Reason for examination: Short of breath. The heart size is normal. Mediastinum is unremarkable. Lung lockwood show some mild hazy opacity at the left lung base. Mild infiltrates cannot be excluded. No gross pleural effusions or pneumothorax are seen. No acute bony abnormalities are seen. Impression: Mild hazy opacity at the left lung base. Cannot exclude some mild infiltrates. Recommend clinical correlation and follow-up. Electronically signed by: Magaly Samayoa MD (10/10/2021 5:23 PM) [facility] DICTATED AND SIGNED BY: MAGALY SAMAYOA MD DATE: 10/10/211720 CC: DEVON TRIMBLE APRN; JOSE SINGLETON MD ~MTH0 0 (DEVON TRIMBLE APRN) Heart Score: C/O Chest Pain: No Risk Factors: Risk Factors: DM, Current or recent (<one month) smoker, HTN, HLP, family history of CAD, obesity. Risk Scores: Score 0 - 3: 2.5% MACE over next 6 weeks - Discharge Home Score 4 - 6: 20.3% MACE over next 6 weeks - Admit for Clinical Observation Score 7 - 10: 72.7% MACE over next 6 weeks - Early Invasive Strategies (DEVON TRIMBLE APRN) Course & Med Decision Making: Course & Med Decision Making Pertinent Labs and Imaging studies reviewed. (See chart for details) [] Patient presents to the emergency department for productive cough, fever, shortness of breath, nausea, fatigue, sore throat that started 3 days ago. Patient was hypoxic in the emergency department with an O2 saturation on room air of 88%. Patient was placed on 2 L via nasal cannula as his O2 sat is 94 to 95%. Patient does have a history of CPAP use at night. Work-up in the ER consisted of blood work, EKG, influenza and COVID testing, chest x-ray. Patient CBC was unremarkable. He had elevation in his creatinine at 2.4 which is per his baseline. Patient remained positive for influenza A. His chest x- ray showed pneumonia and he will be treated with an antibiotic. Patient was jenn d tested off of oxygen and his oxygen saturation was 89 to 90%. Nursing staff stated that patient was a high fall risk as he reported weakness and dizziness and was unable to ambulate unassisted. I discussed these findings with Dr. Arnold who agreed to admit the patient for pneumonia and hypoxia under his services. I discussed these findings with patient and he is agreeable to care plan. ER bridge orders placed at this time 180. (DEVON TRIMBLE APRN) Dragon Disclaimer: Dragon Disclaimer: This electronic medical record was generated, in whole or in part, using a voice recognition dictation system. (DEVON TRIMBLE APRN) Departure Departure: Impression: Primary Impression: Pneumonia Qualified Codes: J18.9 - Pneumonia, unspecified organism Disposition: ADMITTED INPATIENT Admitting Physician: Dara Arnold (DEVON TRIMBLE APRN) Condition: STABLE Referrals: JOSE SINGLETON MD (PCP) Attending Signature Attending Signature I have reviewed the PA/REPAIRER [employer]'s note and plan of care. I was available for consultation as needed during the patient's visit in the emergency department. I agree with the clinical impression, plan, and disposition. (JONNIE KRISHNA DO) DEVON TRIMBLE APRN Oct 10, 2021 16:49 JONNIE KRISHNA DO Oct 11, 2021 01:26
[2021-10-10 17:12] LABS: BASO % 1 % (0-3); EOS % 0 % (0-3); HEMATOCRIT 44.9 % (39.0-53.0); HEMOGLOBIN 14.8 g/dL (13.0-17.5); LYMPH # 2.6 x10^3/uL (1.0-4.8); LYMPH % 34 % (24-48); MEAN CORPUSCULAR HEMOGLOBIN 33 pg (25-35); MEAN CORPUSCULAR HGB CONC 33 g/dL (31-37); MEAN CORPUSCULAR VOLUME 98 fL (79-100); MONO # 1.2 x10^3/uL (0.0-1.1); MONO % 15 % (0-9); NEUT # 3.9 x10^3uL (1.8-7.7); NEUT % 51 % (31-73); PLATELET COUNT 155 x10^3/uL (140-400); RED BLOOD COUNT 4.56 x10^6/uL (4.30-5.70); RED CELL DISTRIBUTION WIDTH 14.5 % (11.5-14.5); WHITE BLOOD COUNT 7.6 x10^3/uL (4.0-11.0)
[2021-10-10 17:20] LABS: CALCIUM 8.8 mg/dL (8.5-10.1); CREATININE 2.4 mg/dL (0.7-1.3); GFR 26.3; POTASSIUM 4.7 mmol/L (3.5-5.1)
--- NOTE | 2021-10-10 17:25 | RAD ---
Chest AP portable at 1657: Reason for examination: Short of breath. The heart size is normal. Mediastinum is unremarkable. Lung lockwood show some mild hazy opacity at the left lung base. Mild infiltrates cannot be excluded. No gross pleural effusions or pneumothorax are seen. No acute bony abnormalities are seen. Impression: Mild hazy opacity at the left lung base. Cannot exclude some mild infiltrates. Recommend clinical cor relation and follow-up. Electronically signed by: Magaly Boyd MD (10/10/2021 5:23 PM) [facility]
[2021-10-10 17:28] LABS: ALBUMIN 3.1 g/dL (3.4-5.0); ALBUMIN/GLOBULIN RATIO 0.9 (1.0-1.7); TOTAL BILIRUBIN 0.5 mg/dL (0.2-1.0); TOTAL PROTEIN 6.6 g/dL (6.4-8.2)
[2021-10-10 17:33] LABS: INFLUENZA A PATIENT POSITIVE (NEGATIVE); INFLUENZA B PATIENT NEGATIVE (NEGATIVE)
--- NOTE | 2021-10-10 17:40 | EKG ---
[address] [address] Test Date: 2021-10-10 Test Time: 16:24:53 Pat Name: EULA BURR Department: Room: Gender: M Medical Information Officer: : 1945 Requested By: DEVON TRIMBLE Order Number: [id number] Reading MD: Heriberto Olivares Measurements Intervals [place] Rate: 67 P: -13 [place]: 230 QRS: -39 QRSD: 92 T: 14 QT: 384 QTc: 409 Interpretive Statements SINUS RHYTHM PROLONGED OH INTERVAL ABNORMAL LEFT AXIS DEVIATION NON SPECIFIC ST-T WAVE CHANGES Electronically Signed On 10-10-2021 17:43:03 INSTRUMENT ENGINEER by Heriberto Olivares
[2021-10-11 12:55] LABS: BASO % 0 % (0-3); EOS % 0 % (0-3); HEMATOCRIT 41.8 % (39.0-53.0); HEMOGLOBIN 14.1 g/dL (13.0-17.5); LYMPH # 2.7 x10^3/uL (1.0-4.8); LYMPH % 39 % (24-48); MEAN CORPUSCULAR HEMOGLOBIN 33 pg (25-35); MEAN CORPUSCULAR HGB CONC 34 g/dL (31-37); MEAN CORPUSCULAR VOLUME 98 fL (79-100); MONO # 1.1 x10^3/uL (0.0-1.1); MONO % 16 % (0-9); NEUT # 3.1 x10^3uL (1.8-7.7); NEUT % 45 % (31-73); PLATELET COUNT 142 x10^3/uL (140-400); RED BLOOD COUNT 4.29 x10^6/uL (4.30-5.70); WHITE BLOOD COUNT 6.9 x10^3/uL (4.0-11.0)
[2021-10-11 13:00] LABS: ALBUMIN 2.6 g/dL (3.4-5.0); ALBUMIN/GLOBULIN RATIO 0.7 (1.0-1.7); CALCIUM 8.5 mg/dL (8.5-10.1); CREATININE 2.1 mg/dL (0.7-1.3); GFR 30.7; POTASSIUM 4.3 mmol/L (3.5-5.1); TOTAL BILIRUBIN 0.4 mg/dL (0.2-1.0); TOTAL PROTEIN 6.2 g/dL (6.4-8.2)
[2021-10-11 13:35] VITALS: BP 145/88
[2021-10-11] MEDS ORDERED: NITROGLYCERIN SUBLINGUAL 0.4 MG BOTTLE OF 25. SL PRN (16:15)
--- NOTE | 2021-10-11 18:36 | HP ---
DATE OF SERVICE: 10/11/2021 ADMIT DATE: 10/10/2021 HISTORY OF PRESENT ILLNESS: The patient is a 76-year-old male patient who came to the Emergency Room with a complaint multiple complaints including shortness of breath, fever, productive cough, nausea, fatigue and sore throat that started about 3 days ago. The patient was diagnosed with influenza in 09/23 and was admitted for 5 days. At that time was treated with Tamiflu. The patient does not wear oxygen at home, but was hypoxic upon arrival to the Emergency Room at 88% on room air. The patient was titrated up on 2 liters via nasal cannula. He states that he does have a CPAP at nighttime. He denied any vomiting, diarrhea or abdominal pain. He was extensively investigated in the Emergency Room, has had lab work as well as imaging studies. His lab work showed a normal white cell count is 7600. His chemistry showed that he has impaired kidney function with a creatinine of 2.4, apparently his baseline creatinine is about 2 over the last 5 years. His imaging studies: Chest x-ray showed the patient has mild hazy opacity at the left lung base, cannot exclude mild infiltrate. Recommend clinical correlation. The patient was admitted with pneumonia, probably community-acquired and was started on IV Levaquin given that he is allergic to PENICILLIN AND SULFA DRUGS, and also acute hypoxic respiratory failure. PAST MEDICAL HISTORY: Significant for morbid obesity and obstructive sleep apnea. 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 PAST SURGICAL HISTORY: Significant for PCI and stent deployment, splenectomy, neck surgery, and cataract extraction. ALLERGIES: He is allergic to PENICILLIN AND SULFA DRUGS. MEDICATIONS: He is currently on the following medications: Cetirizine 10 mg daily, atorvastatin calcium 40 mg at bedtime, nitroglycerin 0.4 mg sublingually every 5 minutes x 3, Bystolic 5 mg once a day, amlodipine 5 mg once a day, losartan potassium 100 mg daily, aspirin 81 mg once a day, fluticasone, Flonase 2 sprays to each nostril once a day, magnesium oxide 400 mg daily, ascorbic acid 500 mg daily and cholecalciferol vitamin D 5000 units once a day. FAMILY HISTORY: His father at age of 60 because of complication of COPD. He has 7 brothers, only 2 left and 5 sisters, which 3 still alive. SOCIAL HISTORY: He is , has 1 son. He quit smoking in 1968. Does not drink alcohol or use recreational drugs. He has retired from [employer] after his neck surgery. REVIEW OF SYSTEMS: As per history of present illness. PHYSICAL EXAMINATION: GENERAL: On arrival to the Emergency Room, he was somewhat tachypneic, but there was no pallor, jaundice, cyanosis, no lymphadenopathy, no thyromegaly, no jugular venous distention. No limb edema. VITAL SIGNS: Her heart rate was 67, blood pressure is 101/52, temperature was 98.1, respiratory rate was 22 and oxygen saturation was 88% on room air, increased to 92%-94% on 2 liters of oxygen. HEAD, EYES, EARS, NOSE, AND THROAT: Normocephalic, atraumatic. NECK: Supple. HEART: Showed normal first and second heart sounds, no gallop or murmur. CHEST: Shows central trachea, equal bilateral expansion, air entry, vesicular breath sounds with crepitation mostly in the left side posteriorly. ABDOMEN: Distended, soft, nontender. NEUROLOGIC: He was grossly intact. LABORATORY DATA: On arrival showed a white cell count 7600, hemoglobin 14.8, hematocrit 44.9, MCV 98 and platelet count of 155,000 with normal manual differential. His chemistry showed a serum sodium 136, potassium 4.7, chloride 100, bicarbonate 26, anion gap of 10, BUN 23, creatinine 2.4. Estimated GFR was 26 mL per minute. His glucose was 98, calcium was 8.8. Total bilirubin, AST, ALT, alkaline phosphatase were normal. Total protein was 6.6, albumin 3.1. His coronavirus by rapid antigens testing was negative. His influenza A positive and influenza B was negative. ASSESSMENT AND PLAN: The patient was started on levofloxacin. We will reconcile all his medication and as he is mildly hypertensive, I will hold his antihypertensive medication for now and we will monitor his lab work and with a result of the culture and sensitivity. FINAL ADMISSION DIAGNOSES: 1. Acute hypoxic respiratory failure. 2. Left lower lobe infiltrate. 3. Influenza A, although apparently he was treated with Tamiflu while he was in [place] in [place]. I am not sure exactly what to make of this as his symptoms started almost 4 days ago and it is now too late for Tamiflu to be started. DO/HANNY DR: Adelfo TID: [id number]
[2021-10-11 21:21] VITALS: BP 106/66
[2021-10-11] MEDS: ATORVASTATIN CALCIUM 20 MG TABLET PO SCH (21:43)
[2021-10-12 00:43] VITALS: BP 107/61
[2021-10-12 06:36] VITALS: BP 127/70
[2021-10-12 07:28] LABS: HEMATOCRIT 39.5 % (39.0-53.0); HEMOGLOBIN 13.3 g/dL (13.0-17.5); RED BLOOD COUNT 4.08 x10^6/uL (4.30-5.70); RED CELL DISTRIBUTION WIDTH 14.3 % (11.5-14.5); WHITE BLOOD COUNT 7.1 x10^3/uL (4.0-11.0)
[2021-10-12 07:48] LABS: ALBUMIN 2.5 g/dL (3.4-5.0); ALBUMIN/GLOBULIN RATIO 0.8 (1.0-1.7); CALCIUM 8.4 mg/dL (8.5-10.1); GFR 32.5; POTASSIUM 4.3 mmol/L (3.5-5.1); TOTAL BILIRUBIN 0.4 mg/dL (0.2-1.0); TOTAL PROTEIN 5.6 g/dL (6.4-8.2)
[2021-10-12] MEDS: FLUTICASONE 50MCG/NASAL SPRAY 16GM BOTTLE. NS SCH (09:00)
[2021-10-12] MEDS: ASCORBIC ACID 500 MG TABLET PO SCH (10:04)
[2021-10-12] MEDS: ASPIRIN ENTERIC COATED 81 MG TABLET.DR. PO SCH (10:04)
[2021-10-12] MEDS: PANTOPRAZOLE 40 MG TABLET. PO SCH (10:04)
[2021-10-12] MEDS: MAGNESIUM OXIDE 400 MG TABLET PO SCH (10:04)
[2021-10-12] MEDS: CETIRIZINE HCL 10 MG TABLET PO SCH (10:05)
[2021-10-12] MEDS: CHOLECALCIFEROL (VITAMIN D3) 1,000 UNIT TABLET PO SCH (10:19)
[2021-10-12 11:46] VITALS: BP 123/74
[2021-10-12 15:39] VITALS: BP 117/78
[2021-10-12] MEDS: VANCOMYCIN PER PHARMACY MC PRN (15:59)
[2021-10-12] MEDS ORDERED: ONDANSETRON PF 4 MG/2 ML VIAL. IVP PRN (16:00)
[2021-10-12] MEDS ORDERED: ACETAMINOPHEN 325 MG TABLET PO PRN (16:00)
[2021-10-12] MEDS ORDERED: VANCOMYCIN 2 GM in IV NORMAL SALINE 500ML 500 ML IV ONE ×2 (16:30→20:00)
[2021-10-12 19:00] VITALS: BP 122/70
[2021-10-12] MEDS: LACTOBACILLUS RHAMNOSUS GG 1 CAPSULE. PO SCH (21:20)
[2021-10-12] MEDS: ATORVASTATIN CALCIUM 20 MG TABLET PO SCH (21:21)
[2021-10-12] MEDS: MEROPENEM 1 GM in IV NORMAL SALINE 100ML 100 ML IV SCH (22:45)
--- NOTE | 2021-10-12 23:57 | PN ---
DATE: 10/12/2021 SUBJECTIVE: The patient is resting, slightly propped up in bed, no apparent distress. He did spike a temperature up to 101.6. According to him was treated with Tamiflu for 5 days while he was in [place], visiting his son at the beginning of this month. He apparently was vaccinated and he was admitted and was treated with community-acquired pneumonia. His white cell count was normal and unfortunately he continued to spike his temperature and therefore, I will broaden the spectrum to cover Staph as the patient's with post-influenza pneumonia sometimes can be caused by Staphylococcus aureus. PHYSICAL EXAMINATION: GENERAL: When I saw him this afternoon, he was slightly tachypneic, but there is no pallor, jaundice, cyanosis or thyromegaly. No jugular venous distention. No lower limb edema. VITAL SIGNS: His heart rate was 75, blood pressure is 123/74, temperature was 101.6, respiratory rate was 24 and oxygen saturation was 91% on 2 liters of oxygen. HEAD, EYES, EARS, NOSE, AND THROAT: Normocephalic, atraumatic. NECK: Supple. HEART: Showed normal first and second heart sounds. No gallop, rub or murmur. CHEST: Showed central trachea, equal bilateral chest expansion, air entry, vesicular breath sounds with crepitation mostly on the left side posteriorly. ABDOMEN: Distended, soft, nontender. NEUROLOGIC: He was grossly intact. ASSESSMENT: 1. Acute hypoxic respiratory failure. 2. Left lower lobe pneumonia. 3. Influenza A positive, although apparently he was treated with Tamiflu while he was in [place] in [place]. He stated that he has completed treatment with Tamiflu at that time. PLAN: My plan is to discontinue Levaquin. We will do two sets of blood culture and also broaden the spectrum to meropenem as HE IS ALLERGIC TO PENICILLIN WELL VANCOMYCIN. ELIZABETH DR: Adelfo TID: [id number]
[2021-10-13 00:11] VITALS: BP 147/83
[2021-10-13 05:00] VITALS: BP 125/69
[2021-10-13] MEDS: CETIRIZINE HCL 10 MG TABLET PO SCH (08:06)
[2021-10-13] MEDS: LACTOBACILLUS RHAMNOSUS GG 1 CAPSULE. PO SCH ×2 (08:06→21:33)
[2021-10-13] MEDS: ASPIRIN ENTERIC COATED 81 MG TABLET.DR. PO SCH (08:06)
[2021-10-13] MEDS: MAGNESIUM OXIDE 400 MG TABLET PO SCH (08:06)
[2021-10-13] MEDS: CHOLECALCIFEROL (VITAMIN D3) 1,000 UNIT TABLET PO SCH (08:06)
[2021-10-13] MEDS: ASCORBIC ACID 500 MG TABLET PO SCH (08:06)
[2021-10-13] MEDS: MEROPENEM 1 GM in IV NORMAL SALINE 100ML 100 ML IV SCH (08:06)
[2021-10-13] MEDS: PANTOPRAZOLE 40 MG TABLET. PO SCH (08:06)
[2021-10-13 08:45] LABS: ALBUMIN 2.5 g/dL (3.4-5.0); ALBUMIN/GLOBULIN RATIO 0.8 (1.0-1.7); CALCIUM 8.7 mg/dL (8.5-10.1); CREATININE 1.8 mg/dL (0.7-1.3); GFR 36.7; HEMOGLOBIN 13.6 g/dL (13.0-17.5); POTASSIUM 4.6 mmol/L (3.5-5.1); RED BLOOD COUNT 4.2 x10^6/uL (4.30-5.70); RED CELL DISTRIBUTION WIDTH 14.6 % (11.5-14.5); TOTAL BILIRUBIN 0.5 mg/dL (0.2-1.0); TOTAL PROTEIN 5.5 g/dL (6.4-8.2); WHITE BLOOD COUNT 7.9 x10^3/uL (4.0-11.0)
[2021-10-13] MEDS: FLUTICASONE 50MCG/NASAL SPRAY 16GM BOTTLE. NS SCH (09:00)
[2021-10-13 12:15] VITALS: BP 113/61
[2021-10-13 16:48] VITALS: BP 115/63
[2021-10-13] MEDS: ZINC SULFATE 220 MG CAPSULE. PO SCH (17:16)
[2021-10-13] MEDS: DEXAMETHASONE SOD PHOS 10 MG/ML VIAL. IV SCH (17:16)
[2021-10-13] MEDS: ENOXAPARIN 40 MG/0.4 ML SYRINGE. SQ SCH (17:16)
[2021-10-13] MEDS ORDERED: REMDESIVIR LOAD in IV NORMAL SALINE 250ML TV IV ONE (17:30)
[2021-10-13 19:00] VITALS: BP 126/63
[2021-10-13] MEDS: VANCOMYCIN 1.75 GM in IV NORMAL SALINE 500ML 500 ML IV SCH (21:32)
[2021-10-13] MEDS: ATORVASTATIN CALCIUM 20 MG TABLET PO SCH (21:33)
--- NOTE | 2021-10-13 22:53 | PN ---
DATE: 10/13/2021 SUBJECTIVE: The patient is resting, slightly propped up in bed, in no apparent distress. He continued to have cough with scanty yellowish sputum. He has also had stuffy nose and postnasal drip and continued to complain of shortness of breath. Denied any chest pain. PHYSICAL EXAMINATION: GENERAL: When I examined him today, he looked well and was clearly in no apparent respiratory distress. There was no pallor, jaundice, cyanosis or thyromegaly. No jugular venous distention. No limb edema. VITAL SIGNS: His heart rate was 70, blood pressure is 113/61, temperature was 98.7, respiratory rate 20, and oxygen saturation was 94% on 2 liters of oxygen. HEAD, EYES, EARS, NOSE, AND THROAT: Normocephalic, atraumatic. NECK: Supple. HEART: Showed normal first and second heart sounds. No gallop, rub or murmur. CHEST: Shows central trachea, equal bilateral expansion, air entry, vesicular breath sounds with bilateral basal crepitation. I could not appreciate any rhonchi. ABDOMEN: Distended, soft, nontender. NEUROLOGIC: He is awake, alert, responding appropriately. All cranial nerves intact. He moves extremities without difficulty. His intake was 1440, no output was recorded. LABORATORY DATA: This morning showed a white cell count 7900, hemoglobin 13.6, hematocrit 41, MCV 98 and platelet count of 155,000. His serum sodium was 137, potassium 4.6, chloride 102, bicarbonate 24, anion gap of 11, BUN 25, creatinine 1.8. Estimated GFR was 36 mL per minute. Her glucose was 79, calcium was 8.7. Total bilirubin, AST, ALT, alkaline phosphatase were normal. Total protein 5.5, albumin was 2.5. His coronavirus by PCR was positive. His influenza A positive. However, he has been treated with Tamiflu only recently for influenza when he was in [place]. ASSESSMENT: 1. Acute hypoxic respiratory failure. 2. COVID-19 pneumonia. 3. Possible superimposed community-acquired pneumonia. 4. Influenza A positive, although he apparently was treated with Tamiflu while he was in [place] at the beginning of September, probably around September 30 for 5 days. PLAN: My plan is to continue with IV meropenem as well as vancomycin. I will start also on heparin subcutaneously 5000 units 3 times a day. We will continue with the dexamethasone. Follow his response gradually and he might eventually be able to go home on oxygen. He is already on CPAP at nighttime without oxygen. DENISHA DR: Adelfo TID: [id number]
[2021-10-13 23:00] VITALS: BP 121/70
[2021-10-14] MEDS: MEROPENEM 1 GM in IV NORMAL SALINE 100ML 100 ML IV SCH ×3 (00:27→22:57)
[2021-10-14 05:00] VITALS: BP 118/73
[2021-10-14 07:29] LABS: HEMATOCRIT 43.2 % (39.0-53.0); HEMOGLOBIN 14.3 g/dL (13.0-17.5); RED BLOOD COUNT 4.44 x10^6/uL (4.30-5.70); RED CELL DISTRIBUTION WIDTH 14.4 % (11.5-14.5); WHITE BLOOD COUNT 5.5 x10^3/uL (4.0-11.0)
[2021-10-14 07:48] LABS: ALBUMIN 2.4 g/dL (3.4-5.0); ALBUMIN/GLOBULIN RATIO 0.6 (1.0-1.7); CALCIUM 8.9 mg/dL (8.5-10.1); CREATININE 1.6 mg/dL (0.7-1.3); POTASSIUM 4.5 mmol/L (3.5-5.1); TOTAL BILIRUBIN 0.3 mg/dL (0.2-1.0); TOTAL PROTEIN 6.5 g/dL (6.4-8.2)
[2021-10-14] MEDS: DEXAMETHASONE SOD PHOS 10 MG/ML VIAL. IV SCH (08:29)
[2021-10-14] MEDS: CETIRIZINE HCL 10 MG TABLET PO SCH (08:31)
[2021-10-14] MEDS: ASPIRIN ENTERIC COATED 81 MG TABLET.DR. PO SCH (08:31)
[2021-10-14] MEDS: CHOLECALCIFEROL (VITAMIN D3) 1,000 UNIT TABLET PO SCH (08:31)
[2021-10-14] MEDS: LACTOBACILLUS RHAMNOSUS GG 1 CAPSULE. PO SCH ×2 (08:31→20:40)
[2021-10-14] MEDS: ASCORBIC ACID 1,000 MG TABLET PO SCH (08:32)
[2021-10-14] MEDS: ZINC SULFATE 220 MG CAPSULE. PO SCH (08:32)
[2021-10-14] MEDS: MAGNESIUM OXIDE 400 MG TABLET PO SCH (08:32)
[2021-10-14] MEDS: PANTOPRAZOLE 40 MG TABLET. PO SCH (08:32)
[2021-10-14] MEDS: FLUTICASONE 50MCG/NASAL SPRAY 16GM BOTTLE. NS SCH (08:54)
[2021-10-14 11:14] VITALS: BP 114/75
[2021-10-14 16:44] VITALS: BP 127/71
[2021-10-14] MEDS: ENOXAPARIN 40 MG/0.4 ML SYRINGE. SQ SCH (16:58)
[2021-10-14] MEDS ORDERED: REMDESIVIR 100mg in NORMAL SALINE 250ML X 4 DAYS IV SCH (17:30)
[2021-10-14 19:47] LABS: VANC TR 16.6 mcg/mL (10.0-20.0)
[2021-10-14 19:48] VITALS: BP 122/71
[2021-10-14] MEDS: VANCOMYCIN 1.75 GM in IV NORMAL SALINE 500ML 500 ML IV SCH (20:40)
[2021-10-14] MEDS: ATORVASTATIN CALCIUM 20 MG TABLET PO SCH (20:40)
[2021-10-14 23:42] VITALS: BP 132/71
[2021-10-15 05:45] VITALS: BP 102/67
[2021-10-15] MEDS: VANCOMYCIN PER PHARMACY MC PRN (07:20)
[2021-10-15] MEDS: DEXAMETHASONE SOD PHOS 10 MG/ML VIAL. IV SCH (08:42)
[2021-10-15] MEDS: ASPIRIN ENTERIC COATED 81 MG TABLET.DR. PO SCH (08:42)
[2021-10-15] MEDS: ASCORBIC ACID 1,000 MG TABLET PO SCH (08:43)
[2021-10-15] MEDS: PANTOPRAZOLE 40 MG TABLET. PO SCH (08:43)
[2021-10-15] MEDS: LACTOBACILLUS RHAMNOSUS GG 1 CAPSULE. PO SCH (08:43)
[2021-10-15] MEDS: CHOLECALCIFEROL (VITAMIN D3) 1,000 UNIT TABLET PO SCH (08:43)
[2021-10-15] MEDS: MAGNESIUM OXIDE 400 MG TABLET PO SCH (08:43)
[2021-10-15] MEDS: ZINC SULFATE 220 MG CAPSULE. PO SCH (08:44)
[2021-10-15] MEDS: CETIRIZINE HCL 10 MG TABLET PO SCH (08:44)
[2021-10-15] MEDS: MEROPENEM 1 GM in IV NORMAL SALINE 100ML 100 ML IV SCH (08:51)
[2021-10-15] MEDS ORDERED: HEPARIN for SUB-Q USE 5,000 UNIT/ML VIAL. SQ SCH (09:00)
[2021-10-15] MEDS: FLUTICASONE 50MCG/NASAL SPRAY 16GM BOTTLE. NS SCH (09:06)
--- NOTE | 2021-10-15 09:30 | PN ---
DATE: 10/14/2021 ATTENDING PHYSICIANS: Dr. Arnold, Dr. Obrien. SUBJECTIVE: Feeling better. No new complaints. OBJECTIVE FINDINGS: VITAL SIGNS: Blood pressure this morning is 121/70, pulse is 79 and regular, oxygen saturations are 94% on 2 liters by nasal cannula. He is afebrile. HEENT: Head is without trauma. Pupils are reactive. Sclerae nonicteric. Oropharynx clear. NECK: Supple. LUNGS: Good breath sounds. CARDIOVASCULAR: Regular heart tones. ABDOMEN: Soft. EXTREMITIES: Without edema. NEUROLOGIC: Focally intact. ASSESSMENT: 1. Acute hypoxemic respiratory failure, improving. 2. COVID-19 pneumonia despite being fully vaccinated. 3. Superimposed community-acquired pneumonia. 4. Influenza A pneumonia. He already had Tamiflu. PLAN: 1. Continue IV meropenem. 2. Wean down supplemental oxygen. 3. If he can have adequate saturation, he can be discharged as early as tomorrow. LETICIA/LUIGI/ANDRADE DR: Audra TID: [id number] CC: ARELI GARCIA
[2021-10-15 10:22] VITALS: BP 129/69
--- NOTE | 2021-10-15 11:37 | DS ---
DATE OF DISCHARGE: 10/15/2021 ATTENDING PHYSICIAN: Dr. Arnold. FINAL DISCHARGE DIAGNOSES: 1. Acute hypoxemic respiratory failure, improved. 2. Left lower lobe pneumonia. 3. Influenza A pneumonia. 4. The patient has been fully vaccinated. 5. History of leukemia, requiring splenectomy. 6. Essential hypertension. 7. Coronary artery disease. 8. Obesity. 9. Sleep apnea. HISTORY AND PHYSICAL: The patient is a pleasant 76-year-old gentleman, very active, multiple medical issues, admitted with hypoxemia. He has been vaccinated. He also tested positive for influenza. He also has a breakthrough COVID, most likely the Omicron variant. PHYSICAL EXAMINATION: Please see the dictated note. PERTINENT LABORATORY AND X-RAY STUDIES: The repeat swab on the was positive for coronavirus. Chemistry panel unremarkable. Creatinine at baseline was 2.1, repeated was down to 1.6 mg/dL. Hemoglobin 14.3 grams, white count 5500. Chest x-ray on admission showed mild hazy opacities in the left lung base. COURSE IN HOSPITAL: The patient was better. He did receive intravenous antibiotics empirically, Decadron, supplemental oxygen which was eventually weaned off. Home meds were continued. Diet was advanced and he was fairly independent. On the fifth hospital day, his room air saturations were adequate. He was ready for discharge. Lungs were clear with very good air movement. Therefore, he is discharged home with the following meds. Home meds are basically unchanged. He will continue his scheduled amlodipine 5 mg daily, vitamin C, aspirin, Lipitor, cetirizine p.r.n., vitamin D3, fluticasone, losartan 100 mg daily, Bystolic, nitroglycerin p.r.n., omeprazole dose is unchanged. In addition, I recommended Decadron 8 mg daily for 5 more days and finally cephalexin 500 mg p.o. t.i.d. for 7 more days. He will follow up and get a repeat chest x-ray in 10 days' time with his PCP, Dr. Senthil Chiu. The patient was then discharged from our hospital in stable condition with explicit drug and followup care. Total discharge time spent [address]: Audra TID: [id number] CC: Senthil Chiu MD
== END 2021-10-15 13:30 | disposition home or self-care (01) | DRG 177 ==
LOC: ER 14:46 → ER HOLD 18:03 → 1 SOUTH 10-11 12:02
PROVIDERS: ADMIT Internal Medicine; ATTEND Internal Medicine
PROC: XW033E5 Introduction of Remdesivir Anti-infective into Peripheral Vein, Percutaneous Approach, New Technology Group 5 (ICD-10-PCS; principal; 2021-10-13)
DX: U07.1 COVID-19 (principal); J96.01 Acute respiratory failure with hypoxia; J12.82 Pneumonia due to coronavirus disease 2019; J10.08 Influenza due to other identified influenza virus with other specified pneumonia; I10 Essential (primary) hypertension; E66.01 Morbid (severe) obesity due to excess calories; G47.33 Obstructive sleep apnea (adult) (pediatric); I25.10 Atherosclerotic heart disease of native coronary artery without angina pectoris; Z82.5 Family history of asthma and other chronic lower respiratory diseases; Z85.6 Personal history of leukemia; Z87.891 Personal history of nicotine dependence; Z88.0 Allergy status to penicillin; Z88.2 Allergy status to sulfonamides; Z90.81 Acquired absence of spleen; Z95.5 Presence of coronary angioplasty implant and graft; Z68.35 Body mass index [BMI] 35.0-35.9, adult
CPT/HCPCS: 36415; 71045; 80053; 80202; 84145; 84484; 85025; 85027; 87040; 93005; 96365; 96366; J1100; J1650; J1956; J2185; J3370; J7040; J7050; U0003; 99285-25

== ENCOUNTER → 2021-10-22 | Outpatient (CLI) | payer MEDICARE, OTHER ==
[2021-10-15 10:22] VITALS: BP 129/69
--- NOTE | 2021-10-22 13:05 | RAD ---
EXAM: CHEST 2 VIEWS. HISTORY: Pneumonia. COMPARISON: 10/10/2021. FINDINGS: Frontal and lateral views of the chest are obtained. Interstitial opacities are noted in both bases and mid lung zones. There is no pneumothorax or pleura l effusion. The heart is not enlarged. There are atherosclerotic calcifications of the aorta. Anterio r cervical discectomy and fusion changes are noted. IMPRESSION: 1. Multifocal basilar infiltrates are consistent with atypical pneumonia. Electronically signed by: Bryan Goins MD (10/22/2021 1:03 PM) [id number]
== END ==
LOC: RAD 12:42
PROVIDERS: ATTEND Family Medicine
DX: J84.89 Other specified interstitial pulmonary diseases (principal); I70.0 Atherosclerosis of aorta; J18.9 Pneumonia, unspecified organism; Z98.1 Arthrodesis status
CPT/HCPCS: 71046

== ENCOUNTER → 2021-12-11 | Outpatient (CLI) | payer MEDICARE, OTHER ==
[2021-12-11 12:36] LABS: ALBUMIN 2.9 g/dL (3.4-5.0); ALBUMIN/GLOBULIN RATIO 0.8 (1.0-1.7); CALCIUM 9.7 mg/dL (8.5-10.1); CREATININE 1.6 mg/dL (0.7-1.3); POTASSIUM 4.9 mmol/L (3.5-5.1); TOTAL BILIRUBIN 0.7 mg/dL (0.2-1.0); TOTAL PROTEIN 6.4 g/dL (6.4-8.2)
[2021-12-11 15:25] LABS: CHOLESTEROL/HDL RATIO 4.4
== END ==
LOC: LAB 11:08
PROVIDERS: ATTEND Nurse Practitioner
DX: E78.5 Hyperlipidemia, unspecified (principal)
CPT/HCPCS: 36415; 80053; 80061

== ENCOUNTER 2022-01-10 10:34 | Emergency (ER) | payer MEDICARE, OTHER ==
[~2022-01-10] VITALS: Ht 182.9 cm; Wt 113.0 kg
[2022-01-10] MEDS ORDERED: METH4TAB2 PO (11:02)
[2022-01-10] MEDS ORDERED: DOXY100C3 PO (11:02)
--- NOTE | 2022-01-10 11:02 | PHYS DOC ---
Past History Past Medical History: Cancer, Heart Disease, Hypertension, Other Past Surgical History: Cancer Surgery, Spleenectomy, Other Additional Past Surgical Histo: Pancreatic biopsy Alcohol Use: None Drug Use: None General Adult EDM: Chief Complaint: MULTIPLE COMPLAINTS HPI: HPI: Patient is a 76-year-old male who presents to the emergency department for sinus pain, nasal drainage, productive cough started 3 days ago. Patient rates his pain 3 out of 10. He denies fever, vomiting, sick exposures, recent travel. Patient takes Flonase and Zyrtec at home. He received the [employer] vaccine. Review of Systems: Review of Systems: Constitutional: See HPI HENT: See HPI Respiratory: See HPI GI: See HPI Allergies: Allergies: Allergies Coded Allergies Type Severity Reaction Last Updated Verified Penicillins Allergy Intermediate 03/31/17 Yes Sulfa (Sulfonamide Antibiotics) Allergy Intermediate 03/31/17 Yes Physical Exam: PE: Constitutional: Well developed, well nourished, no acute distress, non-toxic appearance. [] HENT: Normocephalic, atraumatic, bilateral external ears normal, oropharynx moist, maxillary sinus pain with palpation, no oral exudates, nose normal. [] Eyes: PERRL, EOMI, conjunctiva normal, no discharge. [] Neck: Normal range of motion, no tenderness, supple, no stridor. [] Cardiovascular:Heart rate regular rhythm, no murmur [] Lungs & Thorax: Coarse left upper lobe, there remaining lobes Abdomen: Bowel sounds normal, soft, no tenderness, no masses, no pulsatile masses. [] Skin: Warm, dry, no erythema, no rash. [] Back: No tenderness, normal range of motion Extremities: No tenderness, no cyanosis, no clubbing, ROM intact, no edema. [] Neurologic: Alert and oriented X 3, normal motor function, normal sensory function, no focal deficits noted. [] Psychologic: Affect normal, judgement normal, mood normal. [] Current Patient Data: Vital Signs: Vital Signs Date Time Temp Pulse Resp B/P (MAP) Pulse Ox O2 Delivery O2 Flow Rate FiO2 01/10/22 10:40 99.2 88 22 133/74 (93) 93 EKG: EKG: [] Radiology/Procedures: Radiology/Procedures: []PROCEDURE: PORTABLE CHEST 1V EXAMINATION: Chest radiograph. VIEWS: Single AP view of the chest COMPARISON: 10/22/2021 INDICATION:76 years, Male, cough. FINDINGS: Stable cardiomediastinal silhouette. Increased interstitial opacities and patchy left perihilar and asymmetric bibasilar opacities. No pleural effusion or pneumothorax. No acute osseous process. IMPRESSION: Multifocal left perihilar and bibasilar opacities concerning for multifocal pneumonia Electronically signed by: Evaristo Dominguez DO (01/10/2022 11:22 AM) [id number] DICTATED AND SIGNED BY: EVARISTO DOMINGUEZ DO DATE: 01/10/22 1120 CC: DEVON TRIMBLE APRN; JOSE SINGLETON MD ~ Heart Score: C/O Chest Pain: N/A Risk Factors: Risk Factors: DM, Current or recent (<one month) smoker, HTN, HLP, family history of CAD, obesity. Risk Scores: Score 0 - 3: 2.5% MACE over next 6 weeks - Discharge Home Score 4 - 6: 20.3% MACE over next 6 weeks - Admit for Clinical Observation Score 7 - 10: 72.7% MACE over next 6 weeks - Early Invasive Strategies Course & Med Decision Making: Course & Med Decision Making Pertinent Labs and Imaging studies reviewed. (See chart for details) [] Patient resents to the emergency department for sinus pressure drainage and a cough. Patient will be tested for COVID-19 and influenza. He will also have a chest x-ray to rule out pneumonia. Chest x-ray shows pneumonia. Influenza B positive. His vital signs are stable. He is not requiring oxygen. Patient will be treated for sinusitis with an antibiotic. Advised to take anti- inflammatory medications. He will be discharged home with albuterol inhaler he feels short of breath. Advised to purchase a pulse oximeter. Discharged home with a steroid. I discussed with patient all findings and diagnostic testing as well as the need to follow-up with PCP for further evaluation and treatment or return to the ER if any new or worsening symptoms. Strict return precautions were also discussed at length. Patient voiced understanding and agreement with the plan. Patient is hemodynamically stable at the time of disposition. Dragon Disclaimer: Dragon Disclaimer: This electronic medical record was generated, in whole or in part, using a voice recognition dictation system. Departure Departure: Impression: Primary Impression: Sinusitis Qualified Codes: J01.00 - Acute maxillary sinusitis, unspecified Additional Impressions: Pneumonia Qualified Codes: J18.9 - Pneumonia, unspecified organism Influenza B Disposition: HOME / SELF CARE / HOMELESS Condition: GOOD Referrals: JOSE SINGLETON MD (PCP) Patient Instructions: Influenza, Adult, Pneumonia, Adult, Sinusitis Additional Instructions: You are seen in the emergency department today for sinus drainage and pressure. You likely have sinusitis. You are positive for influenza B. Your chest x-ray did show pneumonia. You are being treated for sinusitis with an antibiotic and steroid. Please make sure the start and finish the antibiotic completely. Increase your fluids as that will thin your secretions. You are also being discharged home with an albuterol inhaler that you can use when he feels short of breath. I would advise you to purchase a pulse oximeter monitor your oxygen saturation levels at home. If your oxygen saturation drops below 90% you need to return to the emergency department immediately. You can take Tylenol and ibuprofen at home for your pain. Continue taking your Zyrtec and Flonase. Follow-up with your primary care provider on Tuesday regarding your ER visit. Return to the emergency department if you develop shortness of breath, chest pain, high fevers refractory to treatment, tractable nausea or vomiting, weakness. Scripts Albuterol Sulfate (PROAIR HFA INHALER) 8.5 Gm Hfa.aer.ad 1 PUFF INH PRN Q6HRS PRN for SHORTNESS OF BREATH for 7 Days, #1 EACH 0 Refills Prov: DEVON TRIMBLE APRN 01/10/22 Methylprednisolone (MEDROL) 4 Mg Tab.ds.pk 1 PKG PO UD for inflammation, #1 PKG 0 Refills Prov: DEVON TRIMBLE APRN 01/10/22 Doxycycline Hyclate (DOXYCYCLINE HYCLATE) 100 Mg Capsule 1 CAP PO BID for sinusitis for 7 Days, #14 CAP 0 Refills Prov: DEVON TRIMBLE APRN 01/10/22 DEVON TRIMBLE APRN Jan 10, 2022 11:02
--- NOTE | 2022-01-10 11:25 | RAD ---
EXAMINATION: Chest radiograph. VIEWS: Single AP view of the chest COMPARISON: 10/22/2021 INDICATION:76 years, Male, cough. FINDINGS: Stable cardiomediastinal silhouette. Increased interstitial opacities and patchy left perihilar and a symmetric bibasilar opacities. No pleural effusion or pneumothorax. No acute osseous process. IMPRESSION: Multifocal left perihilar and bibasilar opacities concerning for multifocal pneumonia Electronically signed by: Ángel Sow DO (01/10/2022 11:22 AM) [id number]
[2022-01-10 11:30] LABS: INFLUENZA A PATIENT NEGATIVE (NEGATIVE)
[2022-01-10 11:48] LABS: INFLUENZA B PATIENT POSITIVE (NEGATIVE)
[2022-01-10] MEDS ORDERED: ALBU2.5V8 INH (11:53)
[2022-01-10] MEDS ORDERED: DOXYCYCLINE HYCLATE 100 MG TABLET PO ONE (12:00)
[2022-01-10 12:05] VITALS: BP 141/81
== END 2022-01-10 12:10 | disposition home or self-care (01) ==
LOC: ER 10:34
DX: J18.9 Pneumonia, unspecified organism (principal); J01.00 Acute maxillary sinusitis, unspecified; J10.1 Influenza due to other identified influenza virus with other respiratory manifestations; I11.9 Hypertensive heart disease without heart failure; Z20.822 Contact with and (suspected) exposure to COVID-19; Z88.0 Allergy status to penicillin; Z88.2 Allergy status to sulfonamides
CPT/HCPCS: 71045; 87428; 99284